=== PATIENT | female | born 1950 | race Caucasian/White ===

== ENCOUNTER 2019-04-02 03:28 | Inpatient (IN) ==
--- NOTE | 2019-04-02 03:32 | Emergency Department Note ---
Disposition Clinical Impression: UTI (urinary tract infection) Qualifiers: Urinary tract infection type: acute cystitis Hematuria presence: without hematuria Qualified Code(s): N30.00 - Acute cystitis without hematuria Sepsis Qualifiers: Sepsis type: sepsis due to unspecified organism Qualified Code(s): A41.9 - Sepsis, unspecified organism Disposition: Admitted As Inpatient Condition: Fair Time of Disposition: 21:45 General Adult HPI - General Stated complaint: fall Time Seen by Provider: 04/02/19 03:30 - Related Data Home Medications Medication Instructions Recorded Confirmed Acetaminophen [Extra Strength 1,000 mg PO Q6H PRN 04/02/19 04/02/19 Non-Aspirin] Allopurinol [Zyloprim 100 MG] 10 mg PO DAILY 04/02/19 04/02/19 Ascorbic Acid [Vitamin C] 500 mg PO DAILY 04/02/19 04/02/19 Aspirin [Adult Aspirin] 81 mg PO DAILY 04/02/19 04/02/19 Atorvastatin [Lipitor] 20 mg PO HS 04/02/19 04/02/19 Cholecalciferol (Vitamin D3) 2,000 unit PO DAILY 04/02/19 04/02/19 [Vitamin D] Citalopram [CeleXA] 20 mg PO DAILY 04/02/19 04/02/19 Cyanocobalamin (Vitamin B-12) 1,000 mcg PO DAILY 04/02/19 04/02/19 [Vitamin B-12] Fish Oil/Dha/Epa [Fish Oil 1,200 1 each PO DAILY 04/02/19 04/02/19 mg Fish Oil] Furosemide [Lasix] 40 mg PO DAILY 04/02/19 04/02/19 Glimepiride [Amaryl] 1 mg PO BID 04/02/19 04/02/19 Iron,Carbonyl [Iron Chews] 65 mg PO DAILY 04/02/19 04/02/19 Levothyroxine [Synthroid] 25 mcg PO DAILY 04/02/19 04/02/19 Levothyroxine [Synthroid] 200 mcg PO DAILY 04/02/19 04/02/19 Magnesium Oxide [Mag-Oxide 200 mg PO DAILY 04/02/19 04/02/19 Magnesium] Metoprolol [Lopressor] 12.5 mg PO BID 04/02/19 04/02/19 Oxybutynin [Ditropan] 5 mg PO BID 04/02/19 04/02/19 Potassium 99 mg PO DAILY 04/02/19 04/02/19 Warfarin [Coumadin] 5 mg PO 1800 04/02/19 04/02/19 Allergies Allergy/AdvReac Type Severity Reaction Status Date / Time piperacillin [From Zosyn] Allergy See Verified 04/02/19 03:37 Comments tazobactam [From Zosyn] Allergy See Verified 04/02/19 03:37 Comments Past Medical History - Past Medical History Medical history: Reports: non-contributory, cancer, diabetes, RA Surgical history: Reports: cholecystectomy, LEV/BSO, other Psychiatric history: Reports: anxiety, depression - Social History Smoking Status: Former smoker Smokeless Tobacco Status: No Alcohol use: Reports: none Drug use: Reports: none Course Vital Signs Temperature 102.2 F H 04/02/19 03:38 Pulse Rate 110 04/02/19 03:38 Respiratory Rate 21 04/02/19 03:38 Blood Pressure 118/75 04/02/19 03:38 O2 Sat by Pulse Oximetry 96 04/02/19 03:38 Temperature 100.3 F H 04/02/19 19:13 Pulse Rate 119 04/02/19 19:13 Respiratory Rate 17 04/02/19 19:13 Blood Pressure 118/72 04/02/19 19:13 O2 Sat by Pulse Oximetry 92 04/02/19 19:13 Oxygen Delivery Oxygen Delivery Room Air Medical Decision Making - Lab Data Result diagrams: 04/02/19 04:35 04/02/19 04:35 Lab Results 04/02/19 04/02/19 04/02/19 Range/Units 04:00 04:35 04:35 WBC 14.8 H (4.3-11.1) K/mcL RBC 3.94 (3.82-4.97) M/mcL Hgb 10.8 L (11.5-15.4) g/dL Hct 35.6 (35.3-44.9) % MCV 90.4 (83.0-100.0) fL MCH 27.4 L (28.0-33.3) pg MCHC 30.3 L (31.6-35.5) g/dL RDW 17.4 H (11.5-14.5) % Plt Count 205 (140-400) K/mcL MPV 9.9 (9.4-12.4) fL Immature Gran % 1.3 (0-4) % Seg Neutrophils % 87.1 % Lymphocytes % 4.9 % Monocytes % 6.1 % Eosinophils % 0.3 % Basophils % 0.3 % Neutrophils # 12.9 H (1.6-8.9) K/mcL Lymphocytes # 0.7 (0.6-4.6) K/mcL Monocytes # 0.9 (0.0-1.3) K/mcL Eosinophils # 0.0 (0.0-0.6) K/mcL Basophils # 0.1 (0.0-0.2) K/mcL Nucleated RBCs/100 WBC 0.1 H (0) /100 WBC PT (9.4-12.1) Seconds INR APTT (26.0-36.0) Seconds Sodium 135 L (136-145) mEq/L Potassium 4.4 (3.5-5.1) mEq/L Chloride 100 (98-107) mEq/L Carbon Dioxide 24 (23-29) mEq/L BUN 28 H (8-23) mg/dL Creatinine 1.40 H (0.60-1.20) mg/dL Est GFR ( Amer) 45 L (> 60) Est GFR (Non-Af Amer) 37 L (> 60) BUN/Creatinine Ratio 20 (6-26) Glucose 224 H (70-105) mg/dL Calculated Osmolality 292 (280-300) Lactic Acid (0.5-2.2) mmol/L Calcium 9.0 (8.6-10.3) mg/dL Phosphorus 2.6 L (2.7-4.5) mg/dL Magnesium 1.7 (1.6-2.6) mg/dL Total Bilirubin 0.8 (0.3-1.0) mg/dL Direct Bilirubin 0.3 H (0.0-0.2) mg/dL Indirect Bilirubin 0.5 (0.0-1.2) mg/dL AST 22 (13-39) Units/L ALT 15 (7-52) Units/L Alkaline Phosphatase 123 H (34-104) Units/L Troponin I 0.07 H* (< 0.04) ng/mL Serum Total Protein 7.6 (6.4-8.9) g/dL Albumin 3.3 L (3.5-5.7) g/dL Globulin 4.3 H (2.4-3.5) g/dL Albumin/Globulin Ratio 0.8 L (1.1-2.2) Urine Color Yellow (Yellow) Urine Clarity Turbid A (Clear) Urine pH 7.0 (5.0-8.0) pH Units Ur Specific [place] 1.018 (1.010-1.025) Urine Protein 100 H (Neg-Trace) mg/dL Urine Glucose (UA) Normal (Normal) mg/dL Urine Ketones Negative (Negative) mg/dL Urine Blood Moderate H (Negative) Urine Nitrite Positive A (Negative) Urine Bilirubin Negative (Negative) Urine Urobilinogen Normal (Normal) mg/dL Ur Leukocyte Esterase Large H (Negative) Urine Microscopic RBC 15-30 H (0-3) per hpf Urine Microscopic WBC 5-15 H (0-3) per hpf Ur Squamous Epith Cells Many H (None-Few) per lpf Urine Bacteria Many H (None-Few) per hpf Hyaline Casts None Seen (None-Few) per lpf Ur Culture Indicated? YES A (NO) 04/02/19 04/02/19 Range/Units 04:35 04:35 WBC (4.3-11.1) K/mcL RBC (3.82-4.97) M/mcL Hgb (11.5-15.4) g/dL Hct (35.3-44.9) % MCV (83.0-100.0) fL MCH (28.0-33.3) pg MCHC (31.6-35.5) g/dL RDW (11.5-14.5) % Plt Count (140-400) K/mcL MPV (9.4-12.4) fL Immature Gran % (0-4) % Seg Neutrophils % % Lymphocytes % % Monocytes % % Eosinophils % % Basophils % % Neutrophils # (1.6-8.9) K/mcL Lymphocytes # (0.6-4.6) K/mcL Monocytes # (0.0-1.3) K/mcL Eosinophils # (0.0-0.6) K/mcL Basophils # (0.0-0.2) K/mcL Nucleated RBCs/100 WBC (0) /100 WBC PT 15.5 H (9.4-12.1) Seconds INR 1.4 APTT 29.8 (26.0-36.0) Seconds Sodium (136-145) mEq/L Potassium (3.5-5.1) mEq/L Chloride (98-107) mEq/L Carbon Dioxide (23-29) mEq/L BUN (8-23) mg/dL Creatinine (0.60-1.20) mg/dL Est GFR ( Amer) (> 60) Est GFR (Non-Af Amer) (> 60) BUN/Creatinine Ratio (6-26) Glucose (70-105) mg/dL Calculated Osmolality (280-300) Lactic Acid 1.8 (0.5-2.2) mmol/L Calcium (8.6-10.3) mg/dL Phosphorus (2.7-4.5) mg/dL Magnesium (1.6-2.6) mg/dL Total Bilirubin (0.3-1.0) mg/dL Direct Bilirubin (0.0-0.2) mg/dL Indirect Bilirubin (0.0-1.2) mg/dL AST (13-39) Units/L ALT (7-52) Units/L Alkaline Phosphatase (34-104) Units/L Troponin I (< 0.04) ng/mL Serum Total Protein (6.4-8.9) g/dL Albumin (3.5-5.7) g/dL Globulin (2.4-3.5) g/dL Albumin/Globulin Ratio (1.1-2.2) Urine Color (Yellow) Urine Clarity (Clear) Urine pH (5.0-8.0) pH Units Ur Specific [place] (1.010-1.025) Urine Protein (Neg-Trace) mg/dL Urine Glucose (UA) (Normal) mg/dL Urine Ketones (Negative) mg/dL Urine Blood (Negative) Urine Nitrite (Negative) Urine Bilirubin (Negative) Urine Urobilinogen (Normal) mg/dL Ur Leukocyte Esterase (Negative) Urine Microscopic RBC (0-3) per hpf Urine Microscopic WBC (0-3) per hpf Ur Squamous Epith Cells (None-Few) per lpf Urine Bacteria (None-Few) per hpf Hyaline Casts (None-Few) per lpf Ur Culture Indicated? (NO) Attestation Statement - Attestation Attestation: I reviewed the residents documentation and agree with the residents assessment and plan of care. I have personally had face to face time with the patient. (Brief History, Brief Exam, and MDM) I personally supervised and was present for the ochoa/critical portions of the following procedures completed by the resident: (add procedures performed here). [id number] time provided Patient arrives by EMS from home. She states she mechanically got wedged between her power chair and bed. She felt weak. She was evaluated immediately upon arrival to the medical treatment area in conjunction with the resident physician Dr. Capone
[2019-04-02] MEDS ORDERED: 0.9 % Sodium Chloride 1,000 ML IVC ONE (03:47)
[2019-04-02 04:23] LABS: Bilirubin,Urine Negative (Negative); Blood,Urine Moderate (Negative); Clarity,Urine Turbid (Clear); Color,Urine Yellow (Yellow); Glucose,Urine (UA) Normal (Normal); Ketones,Urine Negative (Negative); Leukocyte Esterase,Urine Large (Negative); Nitrite,Urine Positive (Negative); Protein,Urine 100 mg/dL (Neg-Trace); Specific Gravity,Urine 1.018 (1.010-1.025); Urobilinogen,Urine Normal (Normal)
[2019-04-02 04:24] LABS: Bacteria,Urine Many per hpf (None-Few); Hyaline Casts,Urine None Seen per lpf (None-Few); RBC,Urine 15-30 per hpf (0-3); Squamous Epithelial Cell,Urine Many per lpf (None-Few)
--- NOTE | 2019-04-02 04:53 | Emergency Department Note ---
Disposition Clinical Impression: UTI (urinary tract infection) Qualifiers: Urinary tract infection type: acute cystitis Hematuria presence: without hematuria Qualified Code(s): N30.00 - Acute cystitis without hematuria Sepsis Qualifiers: Sepsis type: sepsis due to unspecified organism Qualified Code(s): A41.9 - Sepsis, unspecified organism Disposition: Admitted As Inpatient Condition: Fair Time of Disposition: 05:01 General Adult HPI - General Chief complaint: ED Fall Stated complaint: fall Time Seen by Provider: 04/02/19 03:30 Source: patient, EMS Mode of arrival: EMS Limitations: no limitations Nursing Notes Reviewed: Yes Vital Signs Reviewed: Yes - History of Present Illness HPI Narrative: Patient is a 68-year-old female with a past medical history of diabetes as well as necrotizing fasciitis involving the abdomen status post hysterectomy presenting to the emergency department for evaluation of not feeling well as long as she is calling a fall. She states 1 hour prior to arrival she was getting from her electric chair to the bed and in the process she became stuck in between her chair in the bed. She denies falling. She states that she screamed for her daughter for approximately 45 minutes before her daughter heard her and came to the room and in the squad was called. States that over the last 24 hours she is also not been feeling well chills states that she has been coughing intermittently. She has had a history of cellulitis in the past and she is concerned for rash in her abdomen and left flank. Pain Scale: 2 - Related Data Home Medications Medication Instructions Recorded Confirmed Acetaminophen [Extra Strength 1,000 mg PO Q6H PRN 04/02/19 04/02/19 Non-Aspirin] Allopurinol [Zyloprim 100 MG] 10 mg PO DAILY 04/02/19 04/02/19 Ascorbic Acid [Vitamin C] 500 mg PO DAILY 04/02/19 04/02/19 Aspirin [Adult Aspirin] 81 mg PO DAILY 04/02/19 04/02/19 Atorvastatin [Lipitor] 20 mg PO HS 04/02/19 04/02/19 Cholecalciferol (Vitamin D3) 2,000 unit PO DAILY 04/02/19 04/02/19 [Vitamin D] Citalopram [CeleXA] 20 mg PO DAILY 04/02/19 04/02/19 Cyanocobalamin (Vitamin B-12) 1,000 mcg PO DAILY 04/02/19 04/02/19 [Vitamin B-12] Fish Oil/Dha/Epa [Fish Oil 1,200 1 each PO DAILY 04/02/19 04/02/19 mg Fish Oil] Furosemide [Lasix] 40 mg PO DAILY 04/02/19 04/02/19 Glimepiride [Amaryl] 1 mg PO BID 04/02/19 04/02/19 Iron,Carbonyl [Iron Chews] 65 mg PO DAILY 04/02/19 04/02/19 Levothyroxine [Synthroid] 25 mcg PO DAILY 04/02/19 04/02/19 Levothyroxine [Synthroid] 200 mcg PO DAILY 04/02/19 04/02/19 Magnesium Oxide [Mag-Oxide 200 mg PO DAILY 04/02/19 04/02/19 Magnesium] Metoprolol 04/02/19 04/02/19 Oxybutynin [Ditropan] 5 mg PO BID 04/02/19 04/02/19 Potassium 99 mg PO DAILY 04/02/19 04/02/19 Allergies Allergy/AdvReac Type Severity Reaction Status Date / Time piperacillin [From Zosyn] Allergy See Verified 04/02/19 03:37 Comments tazobactam [From Zosyn] Allergy See Verified 04/02/19 03:37 Comments All systems ED: reviewed and negative except as stated. Review of Systems: As Per HPI Constitutional: Reports: chills. Denies: fever Cardiovascular: Denies: chest pain, palpitations, dyspnea on exertion Respiratory: Reports: cough. Denies: dyspnea, wheezes Gastrointestinal: Denies: abdominal pain, nausea, vomiting, diarrhea, constipation Genitourinary: Denies: urgency, dysuria, frequency Musculoskeletal: Denies: back pain, neck pain Integumentary: Denies: rash Neurological: Denies: headache, weakness, numbness Past Medical History - Past Medical History Attestation: Yes The following information was validated with the patient. Medical history: Reports: non-contributory, cancer, diabetes, RA Surgical history: Reports: cholecystectomy, LEV/BSO, other Psychiatric history: Reports: anxiety, depression - Social History Smoking Status: Former smoker Smokeless Tobacco Status: No Alcohol use: Reports: none Drug use: Reports: none Physical Exam - General Limitations: no limitations General appearance: alert, in no apparent distress, obese - Head Head exam: atraumatic, normocephalic, normal inspection - Eye Eye exam: Present: normal appearance, PERRL, EOMI - ENT ENT exam: normal exam, normal oropharynx, mucous membranes dry - Neck Neck exam: Present: normal inspection, full ROM, trachea midline - Chest Chest inspection: Present: normal inspection, symmetric chest wall rise - Respiratory Respiratory exam: Present: other (diminished bilaterally). Absent: respiratory distress - Cardiovascular Cardiovascular exam: Present: regular rate, normal rhythm, normal heart sounds, +S1, +S2 - Abdominal Exam Abdominal exam: Present: soft, Non-Tender. Absent: tenderness, distention, guarding, rebound, rigidity - Extremities Exam Extremities exam: Present: normal inspection, full ROM, other (diabetic foot ulcer to the left heal appears stage 2/3). Absent: tenderness, pedal edema - Back Exam Back exam: Present: normal inspection, full ROM. Absent: CVA tenderness (R), CVA tenderness (L), rashes - Neurological Exam Neurological exam: Present: alert, oriented X3 - Psychiatric Psychiatric exam: Present: normal affect, normal mood - Skin Skin exam: Present: warm, dry, intact, rash (lower abdomen and left flank that is petechial and large that is patch-like with no blanching. ) Course Course Narrative: Patient's lab work concerning for leukocytosis of 14.8 elevation of her creatinine of 1.40 which has been elevated similarly in the past as well as a urine concerning for a infection. Patient was started on Levaquin given her allergies. She also has an elevation of her troponin of 0.07 which is suspect is due to demand ischemia due to her tachycardia secondary to her sepsis. She is admitted to the hospitalist service for further management. Vital Signs Temperature 102.2 F H 04/02/19 03:38 Pulse Rate 110 04/02/19 03:38 Respiratory Rate 21 04/02/19 03:38 Blood Pressure 118/75 04/02/19 03:38 O2 Sat by Pulse Oximetry 96 04/02/19 03:38 Temperature 101.1 F H 04/02/19 05:21 Pulse Rate 128 04/02/19 05:52 Respiratory Rate 19 04/02/19 05:52 Blood Pressure 143/60 04/02/19 05:52 O2 Sat by Pulse Oximetry 91 04/02/19 05:52 Oxygen Delivery Oxygen Delivery Room Air Medical Decision Making - Medical Records Medical records reviewed: Yes I reviewed the patient's medical records. - Lab Data Lab results reviewed: Yes I reviewed the patient's lab results. Result diagrams: 04/02/19 04:35 04/02/19 04:35 Lab Results 04/02/19 04/02/19 04/02/19 Range/Units 04:00 04:35 04:35 WBC 14.8 H (4.3-11.1) K/mcL RBC 3.94 (3.82-4.97) M/mcL Hgb 10.8 L (11.5-15.4) g/dL Hct 35.6 (35.3-44.9) % MCV 90.4 (83.0-100.0) fL MCH 27.4 L (28.0-33.3) pg MCHC 30.3 L (31.6-35.5) g/dL RDW 17.4 H (11.5-14.5) % Plt Count 205 (140-400) K/mcL MPV 9.9 (9.4-12.4) fL Immature Gran % 1.3 (0-4) % Seg Neutrophils % 87.1 % Lymphocytes % 4.9 % Monocytes % 6.1 % Eosinophils % 0.3 % Basophils % 0.3 % Neutrophils # 12.9 H (1.6-8.9) K/mcL Lymphocytes # 0.7 (0.6-4.6) K/mcL Monocytes # 0.9 (0.0-1.3) K/mcL Eosinophils # 0.0 (0.0-0.6) K/mcL Basophils # 0.1 (0.0-0.2) K/mcL Nucleated RBCs/100 WBC 0.1 H (0) /100 WBC PT (9.4-12.1) Seconds INR APTT (26.0-36.0) Seconds Sodium 135 L (136-145) mEq/L Potassium 4.4 (3.5-5.1) mEq/L Chloride 100 (98-107) mEq/L Carbon Dioxide 24 (23-29) mEq/L BUN 28 H (8-23) mg/dL Creatinine 1.40 H (0.60-1.20) mg/dL Est GFR ( Amer) 45 L (> 60) Est GFR (Non-Af Amer) 37 L (> 60) BUN/Creatinine Ratio 20 (6-26) Glucose 224 H (70-105) mg/dL Calculated Osmolality 292 (280-300) Lactic Acid (0.5-2.2) mmol/L Calcium 9.0 (8.6-10.3) mg/dL Phosphorus 2.6 L (2.7-4.5) mg/dL Magnesium 1.7 (1.6-2.6) mg/dL Total Bilirubin 0.8 (0.3-1.0) mg/dL Direct Bilirubin 0.3 H (0.0-0.2) mg/dL Indirect Bilirubin 0.5 (0.0-1.2) mg/dL AST 22 (13-39) Units/L ALT 15 (7-52) Units/L Alkaline Phosphatase 123 H (34-104) Units/L Troponin I 0.07 H* (< 0.04) ng/mL Serum Total Protein 7.6 (6.4-8.9) g/dL Albumin 3.3 L (3.5-5.7) g/dL Globulin 4.3 H (2.4-3.5) g/dL Albumin/Globulin Ratio 0.8 L (1.1-2.2) Urine Color Yellow (Yellow) Urine Clarity Turbid A (Clear) Urine pH 7.0 (5.0-8.0) pH Units Ur Specific [place] 1.018 (1.010-1.025) Urine Protein 100 H (Neg-Trace) mg/dL Urine Glucose (UA) Normal (Normal) mg/dL Urine Ketones Negative (Negative) mg/dL Urine Blood Moderate H (Negative) Urine Nitrite Positive A (Negative) Urine Bilirubin Negative (Negative) Urine Urobilinogen Normal (Normal) mg/dL Ur Leukocyte Esterase Large H (Negative) Urine Microscopic RBC 15-30 H (0-3) per hpf Urine Microscopic WBC 5-15 H (0-3) per hpf Ur Squamous Epith Cells Many H (None-Few) per lpf Urine Bacteria Many H (None-Few) per hpf Hyaline Casts None Seen (None-Few) per lpf Ur Culture Indicated? YES A (NO) 04/02/19 04/02/19 Range/Units 04:35 04:35 WBC (4.3-11.1) K/mcL RBC (3.82-4.97) M/mcL Hgb (11.5-15.4) g/dL Hct (35.3-44.9) % MCV (83.0-100.0) fL MCH (28.0-33.3) pg MCHC (31.6-35.5) g/dL RDW (11.5-14.5) % Plt Count (140-400) K/mcL MPV (9.4-12.4) fL Immature Gran % (0-4) % Seg Neutrophils % % Lymphocytes % % Monocytes % % Eosinophils % % Basophils % % Neutrophils # (1.6-8.9) K/mcL Lymphocytes # (0.6-4.6) K/mcL Monocytes # (0.0-1.3) K/mcL Eosinophils # (0.0-0.6) K/mcL Basophils # (0.0-0.2) K/mcL Nucleated RBCs/100 WBC (0) /100 WBC PT 15.5 H (9.4-12.1) Seconds INR 1.4 APTT 29.8 (26.0-36.0) Seconds Sodium (136-145) mEq/L Potassium (3.5-5.1) mEq/L Chloride (98-107) mEq/L Carbon Dioxide (23-29) mEq/L BUN (8-23) mg/dL Creatinine (0.60-1.20) mg/dL Est GFR ( Amer) (> 60) Est GFR (Non-Af Amer) (> 60) BUN/Creatinine Ratio (6-26) Glucose (70-105) mg/dL Calculated Osmolality (280-300) Lactic Acid 1.8 (0.5-2.2) mmol/L Calcium (8.6-10.3) mg/dL Phosphorus (2.7-4.5) mg/dL Magnesium (1.6-2.6) mg/dL Total Bilirubin (0.3-1.0) mg/dL Direct Bilirubin (0.0-0.2) mg/dL Indirect Bilirubin (0.0-1.2) mg/dL AST (13-39) Units/L ALT (7-52) Units/L Alkaline Phosphatase (34-104) Units/L Troponin I (< 0.04) ng/mL Serum Total Protein (6.4-8.9) g/dL Albumin (3.5-5.7) g/dL Globulin (2.4-3.5) g/dL Albumin/Globulin Ratio (1.1-2.2) Urine Color (Yellow) Urine Clarity (Clear) Urine pH (5.0-8.0) pH Units Ur Specific [place] (1.010-1.025) Urine Protein (Neg-Trace) mg/dL Urine Glucose (UA) (Normal) mg/dL Urine Ketones (Negative) mg/dL Urine Blood (Negative) Urine Nitrite (Negative) Urine Bilirubin (Negative) Urine Urobilinogen (Normal) mg/dL Ur Leukocyte Esterase (Negative) Urine Microscopic RBC (0-3) per hpf Urine Microscopic WBC (0-3) per hpf Ur Squamous Epith Cells (None-Few) per lpf Urine Bacteria (None-Few) per hpf Hyaline Casts (None-Few) per lpf Ur Culture Indicated? (NO) - Radiology Data Radiology results reviewed: Yes I reviewed the patient's radiology results. Chest X-Ray 04/02/19 03:45 IMPRESSION: Cardiomegaly with mild pulmonary edema and suspected small effusions. Difficult to exclude subtle airspace disease at the left lung base. D/ / José Miguel Packer / José Miguel Packer Interpreting Provider: José Miguel Packer - EKG Data EKG #1 EKG attestation: Yes I reviewed and interpreted this EKG.
[2019-04-02 04:57] LABS: Basophils # 0.1 K/mcL (0.0-0.2); Basophils % 0.3 %; Eosinophils % 0.3 %; Hematocrit 35.6 % (35.3-44.9); Hemoglobin 10.8 g/dL (11.5-15.4); Immature Granulocytes % 1.3 % (0-4); Lymphocytes # 0.7 K/mcL (0.6-4.6); Lymphocytes % 4.9 %; Mean Corpuscular HGB Conc 30.3 g/dL (31.6-35.5); Mean Corpuscular Hemoglobin 27.4 pg (28.0-33.3); Mean Corpuscular Volume 90.4 fL (83.0-100.0); Mean Platelet Volume 9.9 fL (9.4-12.4); Monocytes # 0.9 K/mcL (0.0-1.3); Monocytes % 6.1 %; Neutrophils # 12.9 K/mcL (1.6-8.9); Nucleated Red Blood Cells 0.1 /100 WBC (0); Platelet Count 205 K/mcL (140-400); Red Blood Count 3.94 M/mcL (3.82-4.97); Red Cell Distribution Width 17.4 % (11.5-14.5); Segmented Neutrophils % 87.1 %; White Blood Count 14.8 K/mcL (4.3-11.1)
[2019-04-02] MEDS ORDERED: levoFLOXacin 750 MG/150 ML 750 MG/150 ML BAG IVPB ONE (04:58)
[2019-04-02 05:01] LABS: INR 1.4; Prothrombin Time 15.5 Seconds (9.4-12.1)
[2019-04-02 05:03] LABS: Activated Partial Thrombo Time 29.8 Seconds (26.0-36.0)
[2019-04-02 05:26] LABS: Albumin 3.3 g/dL (3.5-5.7); Albumin/Globulin Ratio 0.8 (1.1-2.2); Bilirubin,Direct 0.3 mg/dL (0.0-0.2); Bilirubin,Indirect 0.5 mg/dL (0.0-1.2); Bilirubin,Total 0.8 mg/dL (0.3-1.0); Globulin 4.3 g/dL (2.4-3.5); Magnesium 1.7 mg/dL (1.6-2.6); Phosphorous 2.6 mg/dL (2.7-4.5); Potassium 4.4 mEq/L (3.5-5.1); Total Protein 7.6 g/dL (6.4-8.9); Troponin I 0.07 ng/mL (< 0.04)
[2019-04-02] MEDS ORDERED: D5% in Water 1,000 ML IVC PRN (09:37)
[2019-04-02] MEDS ORDERED: *HR* Dextrose 50 % in Water (Syg) 50 ML SYRINGE IVP PRN (09:37)
[2019-04-02] MEDS ORDERED: Dextrose Gel 15 GM/37.5 ML TUBE PO PRN ×2 (09:37)
[2019-04-02] MEDS ORDERED: Naloxone 0.4 MG/ML INJ IVP PRN (09:58)
--- NOTE | 2019-04-02 10:49 | Internal Med History&Physical ---
<Naeem España - Last Filed: 04/02/19 11:08> Date of Encounter: 04/02/19 Time of Encounter: 10:00 Internal Medicine - H&P: HPI Chief complaint: Weakness Admitted From: Home History of present illness: Ms. Betancourt is a 68 year old morbidly obese female with a reported past medical history of T2DM, necrotizing fasciitis, RA, Afib on coumadin, CKD stage III, kidney stones, CAD sp coronary stent placement x3. Patient arrived to the ED this morning complaining of weakness. She is nonambulatory due to her obesity and transports herself to and from a powered wheelchair. Around midnight this morning, she experienced a fever of 102.2 and weakness throughout her body. While she was transporting herself from the wheelchair to the bed, she felt weak and in her attempt to get on the bed she fell after losing her footing and "was pinned between the power chair and the bed." Her granddaughter's boyfriend found her after "a while" as she called for help. She developed a band-like bruising on her lower abdomen after the episode. She takes coumadin for Afib and goes to a coumadin clinic. Her last visit was 3 weeks ago and her INR was "2.something". Earlier this week, she experienced a maculopapular rash on her right lower abdomen. The rash is nonpruritic and around the site where she previously had necrotizing fasciitis. The patient experienced fever, lethargy confusion, lower back pain, decreased appetite, and cloudy urine which she attributes to vaseline use for itchiness in the genital area. She denies dysuria, suprapubic pain, increased urinary frequency, or hematuria. She further denies palpitations, chest pain, SOB, focal neurological deficits, or constipation. Past Med Surg Social Fam HX - Past Medical History Medical history: non-contributory, atrial fibrillation, cancer, diabetes, kidney stones, RA, renal disease Additional medical history: Endometrial Cervical cancer Psychiatric history: anxiety, depression - Past Surgical History Surgical History: cholecystectomy Additional surgical history: Necrotizing fasciitis in 2010 to a surgical incision. Gallbladder gangreen surgery 2001. Hysterectomy 2010. Coronary stent placement 2006. Ureteral stent placement december 2018 - Social History Smoking Status: Former smoker Smokeless Tobacco Status: No Alcohol use: none Drug use: none - Family History Father Living Status: Hx Family Cancer: Yes (Metastatic lung cancer) Internal Medicine - H&P: Meds Acetaminophen [Extra Strength Non-Aspirin] 1,000 mg PO Q6H PRN 04/02/19 [Histo ry] Allopurinol [Zyloprim 100 MG] 10 mg PO DAILY 04/02/19 [History] Ascorbic Acid [Vitamin C] 500 mg PO DAILY 04/02/19 [History] Aspirin [Adult Aspirin] 81 mg PO DAILY 04/02/19 [History] Atorvastatin [Lipitor] 20 mg PO HS 04/02/19 [History] Cholecalciferol (Vitamin D3) [Vitamin D] 2,000 unit PO DAILY 04/02/19 [History] Citalopram [CeleXA] 20 mg PO DAILY 04/02/19 [History] Cyanocobalamin (Vitamin B-12) [Vitamin B-12] 1,000 mcg PO DAILY 04/02/19 [History] Fish Oil/Dha/Epa [Fish Oil 1,200 mg Fish Oil] 1 each PO DAILY 04/02/19 [History] Furosemide [Lasix] 40 mg PO DAILY 04/02/19 [History] Glimepiride [Amaryl] 1 mg PO BID 04/02/19 [History] Iron,Carbonyl [Iron Chews] 65 mg PO DAILY 04/02/19 [History] Levothyroxine [Synthroid] 25 mcg PO DAILY 04/02/19 [History] Levothyroxine [Synthroid] 200 mcg PO DAILY 04/02/19 [History] Magnesium Oxide [Mag-Oxide Magnesium] 200 mg PO DAILY 04/02/19 [History] Metoprolol [Lopressor] 12.5 mg PO BID 04/02/19 [History] Oxybutynin [Ditropan] 5 mg PO BID 04/02/19 [History] Potassium 99 mg PO DAILY 04/02/19 [History] Warfarin [Coumadin] 5 mg PO 1800 04/02/19 [History] Allergy/AdvReac Type Severity Reaction Status Date / Time piperacillin [From Zosyn] Allergy See Verified 04/02/19 03:37 Comments tazobactam [From Zosyn] Allergy See Verified 04/02/19 03:37 Comments All Systems PM: A 10-system review of systems was performed and is negative for pertinent findings except as documented above in the HPI. - Constitutional Constitutional: as per HPI - EENT Eyes: as per HPI Ears: as per HPI Nose, mouth and throat: as per HPI - Cardiovascular Cardiovascular ROS IM: as per HPI - Respiratory Respiratory: as per HPI - Gastrointestinal Gastrointestinal: as per HPI - Genitourinary Genitourinary: as per HPI - Musculoskeletal Musculoskeletal ROS IM: as per HPI - Integumentary Integumentary IM: as per HPI - Neurological Neurological ROS: as per HPI - Psychiatric Psychiatric: as per HPI - Endocrine Endocrine IM: as per HPI - Hematologic/Lymphatic Hematologic/Lymphatic: as per HPI - Allergic/Immunologic Allergic/Immunologic: as per HPI - Constitutional Vitals: Temp Pulse Resp BP Pulse Ox 99.0 F 107 19 117/66 90 04/02/19 06:49 04/02/19 06:49 04/02/19 06:49 04/02/19 06:49 04/02/19 06:49 General appearance: Present: A&O X 3, pleasant, no acute distress, answers questions appropriately Exam: mobidly obese - Head Head exam: Present: atraumatic, normocephalic - Neck Neck exam general surgery: Present: supple, trachea midline - Respiratory Respiratory exam: Present: CTAB - Cardiovascular Cardiovascular exam: Present: irregular rhythm, +S1, +S2. Absent: rubs, systolic murmur - Extremities Exam Additional comments: +2 bilateral lower extremity pitting edema. left lower extremity darkening of the skin. - Skin Additional comments: scarring along the lower abdomen due to prior surgery. significant bruising along the lower abdomen from prior fall. Internal Med - H&P Results - Labs CBC & Chem 7: 04/02/19 04:35 04/02/19 04:35 Labs: Short CBC 04/02/19 Range/Units 04:35 WBC 14.8 H (4.3-11.1) K/mcL Hgb 10.8 L (11.5-15.4) g/dL Hct 35.6 (35.3-44.9) % Plt Count 205 (140-400) K/mcL Neutrophils # 12.9 H (1.6-8.9) K/mcL BMP 04/02/19 04:35 Sodium 135 L Potassium 4.4 Chloride 100 Carbon Dioxide 24 BUN 28 H Creatinine 1.40 H Glucose 224 H Calcium 9.0 Cardiac Enzymes 04/02/19 Range/Units 04:35 Troponin I 0.07 H* (< 0.04) ng/mL Liver Function 04/02/19 Range/Units 04:35 Total Bilirubin 0.8 (0.3-1.0) mg/dL Direct Bilirubin 0.3 H (0.0-0.2) mg/dL AST 22 (13-39) Units/L ALT 15 (7-52) Units/L Alkaline Phosphatase 123 H (34-104) Units/L Albumin 3.3 L (3.5-5.7) g/dL Urine 04/02/19 Range/Units 04:00 Urine Color Yellow (Yellow) Urine Clarity Turbid A (Clear) Urine pH 7.0 (5.0-8.0) pH Units Ur Specific [employer] [place] 1.018 (1.010-1.025) Urine Protein 100 H (Neg-Trace) mg/dL Urine Glucose (UA) Normal (Normal) mg/dL - Impressions ITS Impressions Chest X-Ray 04/02/19 03:45 IMPRESSION: Cardiomegaly with mild pulmonary edema and suspected small effusions. Difficult to exclude subtle airspace disease at the left lung base. D/ / José Miguel Packer / José Miguel Packer Interpreting Provider: José Miguel Packer - Assessment and Plan (1) Sepsis Current Visit: Yes Status: Acute Assessment and plan: temperature 102.2, tachycardia, WBC 14.8 source of infection likely secondary to UTI. UA positive for blood, nitrites, leukocyte esterase, bacteria. CXR showed cardiomegaly with mild pulmonary edema and suspected small effusions. suspect source of infection secondary to UTI. of note, patient has had multiple UTIs in the past. patient received one dose of levaquin in ED and received one fluid bolus. Plan: start ceftriaxone urine culture pending blood culture x2 pending patient fluid overloaded. 1 dose 40mg IV lasix 1 now. resume home lasix afterwards. Qualifiers: Sepsis type: sepsis due to unspecified organism Qualified Code(s): A41.9 - Sepsis, unspecified organism (2) UTI (urinary tract infection) Current Visit: Yes Status: Acute Assessment and plan: plan as above Qualifiers: Urinary tract infection type: acute cystitis Hematuria presence: without hematuria Qualified Code(s): N30.00 - Acute cystitis without hematuria (3) Status post fall Current Visit: Yes Status: Acute Assessment and plan: patient on coumadin for Afib and had fall at home with significant lower abdominal bruising. Plan: will get CT abdomen/pelvis to assess for lower abdominal bleeding consult to PT/OT (4) Elevated troponin Current Visit: Yes Status: Acute Assessment and plan: elevated troponin of 0.07, no chest pain. likely demand ischemia in setting of sepsis. continue to trend. (5) CHF (congestive heart failure) Current Visit: No Status: Chronic Assessment and plan: last echo 07/17/18 shows EF 40-45% continue home dose lasix. Qualifiers: Heart failure type: systolic Heart failure chronicity: chronic Qualified Code(s): I50.22 - Chronic systolic (congestive) heart failure (6) CKD (chronic kidney disease) stage 3, GFR 30-59 ml/min Current Visit: No Status: Chronic (7) Gout Current Visit: No Status: Chronic Assessment and plan: continue allopurinol. Qualifiers: Gout site: unspecified site Gout etiology: unspecified cause Chronicity: chronic Presence of tophus: without tophus Qualified Code(s): M1A.9XX0 - Chronic gout, unspecified, without tophus (tophi) (8) Diabetes Current Visit: No Status: Chronic Assessment and plan: hold amaryl, low dose sliding scale insulin ACHS accuchecks ADA diet Qualifiers: Diabetes mellitus type: type 2 Diabetes mellitus continuous churn buttermaker insulin use: without continuous churn buttermaker use Diabetes mellitus complication status: with skin complications Diabetes mellitus complication detail: with foot ulcer Qualified Code(s): E11.621 - Type 2 diabetes mellitus with foot ulcer; L97.509 - Non-pressure chronic ulcer of other part of unspecified foot with unspecified se verity (9) Hypothyroidism Current Visit: No Status: Chronic Assessment and plan: continue synthroid Qualifiers: Hypothyroidism type: unspecified Qualified Code(s): E03.9 - Hypothyroidism, unspecified (10) Morbid obesity Current Visit: No Status: Chronic Assessment and plan: lifestyle modifications advised. (11) CAD (coronary artery disease) Current Visit: No Status: Chronic Assessment and plan: hx of cardiac stent placement x3 continue ASA, statin, beta nayan Qualifiers: Coronary Disease-Associated Artery/Lesion type: [place] artery [place] vs. transplanted heart: [place] heart Associated angina: without angina Qualified Code(s): I25.10 - Atherosclerotic heart disease of [place] coronary artery without angina pectoris (12) DVT prophylaxis Current Visit: Yes Status: Acute Assessment and plan: warfarin dosing per pharmacy - Time Spent With Patient Total time spent is greater than 50% in coordination of care (as documented) at patient's floor/unit and/or counseling patient: <Mariza Padilla - Last Filed: 04/03/19 06:31> Date of Encounter: 04/02/19 Internal Medicine - H&P: HPI History of present illness: Ms. Betancourt is a 68 year old female All Systems PM: A 10-system review of systems was performed and is negative for pertinent findings except as documented above in the HPI. - Constitutional Vitals: Temp Pulse Resp BP Pulse Ox 99.9 F H 98 17 116/75 93 04/03/19 03:52 04/03/19 03:52 04/03/19 03:52 04/03/19 03:52 04/03/19 03:52 Internal Med - H&P Results - Labs CBC & Chem 7: 04/02/19 04:35 04/02/19 04:35 Labs: Cardiac Enzymes 04/02/19 04/02/19 Range/Units 10:37 17:03 Troponin I 0.15 H* 0.13 H* (< 0.04) ng/mL - Impressions ITS Impressions Chest X-Ray 04/02/19 03:45 IMPRESSION: Cardiomegaly with mild pulmonary edema and suspected small effusions. Difficult to exclude subtle airspace disease at the left lung base. D/ / José Miguel Packer / José Miguel Packer Interpreting Provider: José Miguel Packer Abdomen/Pelvis CT 04/02/19 10:00 IMPRESSION: 1. No intra-abdominopelvic hematoma 2. Slightly nodular contour of the liver suggests possible cirrhosis, with mild splenomegaly. No ascites 3. Interval passage of right ureteral stones. Persistent stone in the right renal pelvis and stones in right renal calyces, with haziness of the right peripelvic fat suggesting pyelitis 4. Sigmoid diverticulosis 5. Uncomplicated herniation of a portion of transverse colon through a ventral wall defect 6. Bubble of gas in the urinary bladder should be correlated with any recent catheterization or cystitis 7. Stable para-aortic lymph node 8. Status post cholecystectomy and hysterectomy D/ / Juan Arevalo MD / Juan Arevalo MD Interpreting Provider: Juan Arevalo MD - Time Spent With Patient Total time spent is greater than 50% in coordination of care (as documented) at patient's floor/unit and/or counseling patient: - Attending Attestation I performed a history and physical examination of the patient and discussed his management with the resident. I reviewed the residents note and agree with the documented findings and plan of care.
[2019-04-02] MEDS: Acetaminophen 325 MG TABLET PO PRN ×2 (11:44→17:45)
[2019-04-02] MEDS ORDERED: Furosemide 40 MG/4 ML VIAL IVP ONE (11:50)
[2019-04-02] MEDS: Insulin LISPRO 300 UNITS/3 ML VIAL SQ SCH ×3 (12:36→21:10)
[2019-04-02] MEDS ORDERED: *HR* Metoprolol 5 MG/5 ML VIAL IVP ONE (13:29)
--- NOTE | 2019-04-02 16:31 | Electrocardiograph Report ---
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
[2019-04-02] MEDS ORDERED: Warfarin perPT PO PRN (18:00)
[2019-04-02] MEDS ORDERED: *HR* Warfarin 5 MG TABLET PO ONE (18:00)
[2019-04-03] MEDS: Acetaminophen 325 MG TABLET PO PRN ×3 (01:40→21:24)
[2019-04-03 03:09] LABS: INR 1.5; Prothrombin Time 17.3 Seconds (9.4-12.1)
[2019-04-03] MEDS: cefTRIAXone 2,000 MG in Water for inj. (sterile) 20 ML IVP SCH (05:04)
[2019-04-03] MEDS: Levothyroxine 25 MCG TABLET PO SCH (05:05)
[2019-04-03] MEDS: Insulin LISPRO 300 UNITS/3 ML VIAL SQ SCH ×4 (07:47→21:23)
--- NOTE | 2019-04-03 08:11 | Internal Med Progress Note ---
<Tod Cabrera - Last Filed: 04/03/19 14:00> Hospitalist Progress Note - Encounter Date of Encounter: 04/03/19 - Exam Vitals: Temp Pulse Resp BP Pulse Ox 101.7 F H 106 20 130/77 90 04/03/19 10:57 04/03/19 10:57 04/03/19 10:57 04/03/19 10:57 04/03/19 10:57 - Time Spent with Patient Total time spent is greater than 50% in coordination of care (as documented) at patient's floor/unit and/or counseling patient: Internal Medicine: Result - Labs CBC & Chem 7: 04/03/19 08:38 04/03/19 08:38 Labs: Short CBC 04/03/19 Range/Units 08:38 WBC 14.2 H (4.3-11.1) K/mcL Hgb 10.9 L (11.5-15.4) g/dL Hct 35.4 (35.3-44.9) % Plt Count 182 (140-400) K/mcL Neutrophils # 12.1 H (1.6-8.9) K/mcL BMP 04/03/19 08:38 Sodium 132 L Potassium 3.9 Chloride 97 L Carbon Dioxide 27 BUN 26 H Creatinine 1.35 H Glucose 159 H Calcium 8.7 Cardiac Enzymes 04/02/19 Range/Units 17:03 Troponin I 0.13 H* (< 0.04) ng/mL - ABG Interpretation ABG results: PT/INR, D-dimer PT 17.3 Seconds (9.4-12.1) H 04/03/19 02:29 Consult Discharge Plan - Plan Referrals: Yoan Garcia DO [Primary Care Provider] - - Attending Attestation I examined this patient and my medical decision-making was reviewed with the Resident Physician. I agree with the documented findings, disposition and treatment plan as described except to the extent set forth below. Patient seen and examined at bedside. Patient states that she feels weak today. She reports pain in her knees bilaterally. She reports lower abdominal pain. Denies any fevers or chills. On exam patient is morbidly obese, heart is regular rate and rhythm, no murmurs, rubs, gallops. Abdomen is soft, mildly tender in the lower quadrant. She is noted to have a rash on her lower abdominal wall. No ecchymosis or deformity noted to the knees bilaterally. Sepsis secondary to urinary tract infection: Patient has fever, tachycardia, leukocytosis. Lactic acid, blood pressure normal. Urinary tract infection: Patient presented with fever, leukocytosis, urine c ulture preliminary positive for 2 different gram-negative rods. Currently on Rocephin. Continue to monitor urine culture results and tailor antibiotic therapy accordingly. Fall with knee pain: Plan for bilateral knee x-ray. PT/OT consult. <German Riley - Last Filed: 04/03/19 14:42> Hospitalist Progress Note - Encounter Date of Encounter: 04/03/19 Time of Encounter: 08:11 - Subjective Interval History: Patient was seen and examined at bedside this morning. Patient continued to have temperature overnight = up to 102.7F. She otherwise complains of fatigue, lethargy, body aches, pain all over. She does deny any headache, blurry vision, chest pain, respiratory difficulty, abdominal pain, nausea, vomiting. Vitals hemodynamically stable. Slightly improving leukocytosis. Plan to continue with ceftriaxone for treatment of urinary tract infection, and start vancomycin for treatment of likely cellulitis. Additionally, we will supplement with pain control as needed. - Exam Vitals: Temp Pulse Resp BP Pulse Ox 99.4 F 108 20 119/75 92 04/03/19 07:01 04/03/19 07:01 04/03/19 07:01 04/03/19 07:01 04/03/19 07:01 Exam: GEN: This is a very pleasant 68-year-old female resting in bed side. Accompanied by family. Vitals stable. No acute distress. AAOx3. Morbidly obese HEENT: Atraumatic, Normocephalic, PERRLA, EOMI NECK: Supple, no lymphadenopathy, no JVD CARDIAC: RRR, s1 and s2 present, no murmurs, rubs, gallops PULM: CTAB, not in respiratory distress, no wheezes, rales, crackles, rhonchi ABD: Mild abdominal tenderness to palpation. Extensive rash spreading across lower abdomen from the right lower quadrant all the way around the left lower quadrant to the left flank. Slightly raised rash. Otherwise slightly tender. No wound discharge, blistering. Otherwise, Soft, non-distended, no guarding or rebound tenderness. Bowel sounds present EXT: Mild peripheral edema. Tenderness to palpation. Bruising at the left ankle. No calf tenderness, cyanosis, clubbing NEURO: CN 2-12 grossly intact. No focal neurologic deficits. Follows commands PSYCH: Appropriate mood and affect - Assessment and Plan (1) Sepsis Current Visit: Yes Status: Acute Assessment and Plan: This is a 5-year-old female with extensive past medical history who arrived to the ED complaining of weakness. - Morbidly obese. Transports herself with a mobilized wheelchair. Noted to fall and trap herself between wheelchair and bed. - History of atrial fibrillation on Coumadin - Additionally noted to have a rash across lower abdomen. - Associated symptoms do include fever, lethargy, back and knee pain, decreased appetite - Noted to have temperatures up to 102.7 F; vitals otherwise stable. Patient does have leukocytosis = 14.8 on admission. No lactic acidosis. - Troponin was elevated = 0.07 => 0.15 => 0.13 - Urinalysis did show turbid urine with moderate blood, positive nitrite, large leukocyte esterase, many urine bacteria. - Chest x-ray = cardiomegaly with mild pulmonary edema and suspected small effusions. - EKG did show atrial fibrillation - CT of the abdomen and pelvis: No intra-abdominal pelvic hematoma. Slightly nodular contour liver suggests possible cirrhosis. Sigmoid diverticulosis. Uncomplicated herniation of portion of transverse colon through ventral wall defect. - Status post 1 dose of Levaquin in the ED in one fluid bolus. Admitted for further workup of septic presentation. PLAN: Patient is septic on presentation. She has white count = 14.8, temperature = 102.7 at the highest, and source of infection which is likely UTI. This is suggestive of sepsis secondary to UTI (urosepsis). Patient does have history of multiple UTIs in the past. Patient additionally has picture resembling cellulitis of the abdominal wall. - We will continue patient on antibiotics. Started on Rocephin for treatment of UTI - Follow up blood cultures and urine cultures - We will hold off on giving patient further fluids, given fluid overload status. We will continue with home dose Lasix. - We will start vancomycin given possible cellulitis of the abdominal wall. - Continue to monitor for fevers and her worsening leukocytosis. - Pain and nausea control as needed - Wound care consult. Recommendations appreciated. - Physical therapy/occupational therapy additionally consulted. Recommendations appreciated. (2) UTI (urinary tract infection) Current Visit: Yes Status: Acute Assessment and Plan: History of multiple UTIs in the past - Previous urine cultures mostly grown Klebsiella species. Susceptible to ceftriaxone. - Urinalysis did show turbid urine with moderate blood, positive nitrite, large leukocyte esterase, many urine bacteria. PLAN: Patient presents with likely sepsis secondary to UTI - Continue with Rocephin 2 g daily. - Follow up urine culture - Continue monitor fevers or worsening leukocytosis. (3) Cellulitis Current Visit: Yes Status: Acute Assessment and Plan: Patient does have worsening lower abdominal rash - Spreads from right lower quadrant to left lower quadrant and left flank - May also be secondary to bruising after fall, in this patient who is on Coumadin - However rashes tender to palpation PLAN: Patient appears to have cellulitis of the anterior abdominal wall. May be contributing to fevers and leukocytosis. - We will empirically treat with vancomycin for now - Continue to monitor rash, monitor for worsening signs and symptoms are improving signs and symptoms - Continue to trend white count and monitor for fevers. (4) CHF (congestive heart failure) Current Visit: No Status: Chronic Assessment and Plan: Most recent echocardiogram (07/17/18): Moderately dilated left atrium, LVEF = 40-45%. Indeterminant diastolic function. Normal right ventricle. - Patient does have 2+ lower extremity edema PLAN: - Continue with home dose Lasix. - Does not appear to be in acute CHF exacerbation. (5) Elevated troponin Current Visit: Yes Status: Acute Assessment and Plan: Patient was noted to have elevated troponin on presentation. - EKG did show atrial fibrillation, and did not show any sign of acute ischemic changes - Troponin trended from 0.07 => 0.15 => 0.13 PLAN: Troponin elevation likely secondary to demand ischemia secondary to sepsis. Patient denies any chest pain at this time. - Continue on cardiac telemetry - Monitor for worsening signs or symptoms of chest pain (6) CAD (coronary artery disease) Current Visit: No Status: Chronic Assessment and Plan: History of cardiac stent placement 3 - No acute chest pain - EKG showed atrial fibrillation, but no acute ischemic changes PLAN: - Continue on telemetry - Monitor for signs symptoms of chest pain - Continue aspirin, statin, beta nayan (7) Atrial fibrillation Current Visit: Yes Status: Acute Assessment and Plan: History of atrial fibrillation. Currently managed with beta nayan and Coumadin - INR = 1.4-1.5 PLAN: - Continue Coumadin. Continue beta nayan - Monitor INR (8) CKD (chronic kidney disease) stage 3, GFR 30-59 ml/min Current Visit: No Status: Chronic Assessment and Plan: History of CAD stage III - BUN/Cr = 26/1.35. GFR = 39 PLAN: - Continue with Lasix - Avoid excessive IV fluids. Discontinue for now. - Monitor for worsening kidney function - Avoid nephrotoxins (9) Diabetes Current Visit: No Status: Chronic Assessment and Plan: History of diabetes PLAN: - Continue low-dose sliding scale - Accu-Cheks before meals and at bedtime - Diabetic diet (10) Gout Current Visit: No Status: Chronic Assessment and Plan: Chronic history of gout - Reporting knee pain today PLAN: - Continue allopurinol - Follow up knee x-rays (11) Hypothyroidism Current Visit: No Status: Chronic Assessment and Plan: History of hypothyroidism - Recent TSH = 0.5-6 PLAN: - Continue with Synthroid (12) Morbid obesity Current Visit: No Status: Chronic Assessment and Plan: BMI = 68.5 PLAN: - Lifestyle modification (13) DVT prophylaxis Current Visit: Yes Status: Acute Assessment and Plan: PLAN: - Coumadin DVT Prophylaxis: Coumadin - Time Spent with Patient Total time spent is greater than 50% in coordination of care (as documented) at patient's floor/unit and/or counseling patient: less than 15 minutes Plan of Care Discussed with: patient Internal Medicine: Result - Labs CBC & Chem 7: 04/03/19 08:38 04/03/19 08:38 Labs: Cardiac Enzymes 04/02/19 04/02/19 Range/Units 10:37 17:03 Troponin I 0.15 H* 0.13 H* (< 0.04) ng/mL - ABG Interpretation ABG results: PT/INR, D-dimer PT 17.3 Seconds (9.4-12.1) H 04/03/19 02:29 - Impressions Impressions Abdomen/Pelvis CT 04/02/19 10:00 IMPRESSION: 1. No intra-abdominopelvic hematoma 2. Slightly nodular contour of the liver suggests possible cirrhosis, with mild splenomegaly. No ascites 3. Interval passage of right ureteral stones. Persistent stone in the right renal pelvis and stones in right renal calyces, with haziness of the right peripelvic fat suggesting pyelitis 4. Sigmoid diverticulosis 5. Uncomplicated herniation of a portion of transverse colon through a ventral wall defect 6. Bubble of gas in the urinary bladder should be correlated with any recent catheterization or cystitis 7. Stable para-aortic lymph node 8. Status post cholecystectomy and hysterectomy D/ / Juan Arevalo MD / Juan Arevalo MD Interpreting Provider: Juan Arevalo MD <German Riley - Last Filed: 04/03/19 14:42> (1) Sepsis Qualifiers: Sepsis type: sepsis due to unspecified organism Qualified Code(s): A41.9 - Sepsis, unspecified organism (2) UTI (urinary tract infection) Qualifiers: Urinary tract infection type: acute cystitis Hematuria presence: with hematuria Qualified Code(s): N30.01 - Acute cystitis with hematuria (3) Cellulitis Qualifiers: Site of cellulitis: extremity Site of cellulitis of extremity: lower extremity Laterality: left Qualified Code(s): L03.116 - Cellulitis of left lower limb (4) CHF (congestive heart failure) Qualifiers: Heart failure type: systolic Heart failure chronicity: chronic Qualified Code(s): I50.22 - Chronic systolic (congestive) heart failure (6) CAD (coronary artery disease) Qualifiers: Coronary Disease-Associated Artery/Lesion type: [place] artery [place] vs. transplanted heart: [place] heart Associated angina: without angina Qualified Code(s): I25.10 - Atherosclerotic heart disease of [place] coronary artery without angina pectoris (9) Diabetes Qualifiers: Diabetes mellitus type: type 2 Diabetes mellitus director long term care insulin use: without pen[facility] use Diabetes mellitus complication status: with skin complications Diabetes mellitus complication detail: with foot ulcer Qualified Code(s): E11.621 - Type 2 diabetes mellitus with foot ulcer; L97.509 - Non- pressure chronic ulcer of other part of unspecified foot with unspecified severity (10) Gout Qualifiers: Gout site: unspecified site Gout etiology: unspecified cause Chronicity: chronic Presence of tophus: without tophus Qualified Code(s): M1A.9XX0 - Chronic gout, unspecified, without tophus (tophi) (11) Hypothyroidism Qualifiers: Hypothyroidism type: unspecified Qualified Code(s): E03.9 - Hypothyroidism, unspecified
[2019-04-03] MEDS ORDERED: IRON CARBONYL 65 MG PO SCH (09:00)
[2019-04-03] MEDS ORDERED: Levothyroxine 25 MCG TABLET PO SCH (09:00)
[2019-04-03 09:01] LABS: Basophils % 0.3 %; Hematocrit 35.4 % (35.3-44.9); Hemoglobin 10.9 g/dL (11.5-15.4); Immature Granulocytes % 1.3 % (0-4); Lymphocytes % 7.3 %; Mean Corpuscular HGB Conc 30.8 g/dL (31.6-35.5); Mean Corpuscular Hemoglobin 27.5 pg (28.0-33.3); Mean Corpuscular Volume 89.4 fL (83.0-100.0); Mean Platelet Volume 9.9 fL (9.4-12.4); Monocytes # 0.8 K/mcL (0.0-1.3); Monocytes % 5.8 %; Neutrophils # 12.1 K/mcL (1.6-8.9); Platelet Count 182 K/mcL (140-400); Red Blood Count 3.96 M/mcL (3.82-4.97); Red Cell Distribution Width 17.4 % (11.5-14.5); Segmented Neutrophils % 85.3 %; White Blood Count 14.2 K/mcL (4.3-11.1)
[2019-04-03 09:20] LABS: Calcium 8.7 mg/dL (8.6-10.3); Potassium 3.9 mEq/L (3.5-5.1)
[2019-04-03] MEDS: Cyanocobalamin (B-12) 1,000 MCG TABLET PO SCH (09:40)
[2019-04-03] MEDS: Furosemide 40 MG TABLET PO SCH (09:40)
[2019-04-03] MEDS: Aspirin Enteric Coated 81 MG Tablet PO SCH (09:41)
[2019-04-03] MEDS ORDERED: Naloxone 0.4 MG/ML INJ IVP PRN (11:01)
[2019-04-03] MEDS ORDERED: Vancomycin 1 EACH in 0.9 % Sodium Chloride 250 ML IVPB SCH (12:00)
[2019-04-03] MEDS: traMADol 50 MG TABLET PO PRN (14:10)
[2019-04-03] MEDS ORDERED: *HR* Warfarin 5 MG TABLET PO ONE (18:00)
[2019-04-04] MEDS: cefTRIAXone 2,000 MG in Water for inj. (sterile) 20 ML IVP SCH (05:38)
[2019-04-04] MEDS: Levothyroxine 25 MCG TABLET PO SCH (05:39)
[2019-04-04] MEDS: Acetaminophen 325 MG TABLET PO PRN (06:01)
[2019-04-04 07:21] LABS: Basophils # 0.1 K/mcL (0.0-0.2); Basophils % 0.6 %; Eosinophils # 0.2 K/mcL (0.0-0.6); Eosinophils % 1.8 %; Hematocrit 33.8 % (35.3-44.9); Hemoglobin 10.4 g/dL (11.5-15.4); Immature Granulocytes % 0.9 % (0-4); Lymphocytes # 1.3 K/mcL (0.6-4.6); Lymphocytes % 11.9 %; Mean Corpuscular HGB Conc 30.8 g/dL (31.6-35.5); Mean Corpuscular Hemoglobin 26.9 pg (28.0-33.3); Mean Corpuscular Volume 87.3 fL (83.0-100.0); Mean Platelet Volume 10.2 fL (9.4-12.4); Monocytes # 0.8 K/mcL (0.0-1.3); Monocytes % 7.1 %; Neutrophils # 8.3 K/mcL (1.6-8.9); Platelet Count 184 K/mcL (140-400); Red Blood Count 3.87 M/mcL (3.82-4.97); Red Cell Distribution Width 17.5 % (11.5-14.5); Segmented Neutrophils % 77.7 %; White Blood Count 10.7 K/mcL (4.3-11.1)
[2019-04-04 07:30] LABS: INR 1.4; Prothrombin Time 16.1 Seconds (9.4-12.1)
[2019-04-04 07:41] LABS: Calcium 8.7 mg/dL (8.6-10.3); Magnesium 1.8 mg/dL (1.6-2.6); Phosphorous 3.5 mg/dL (2.7-4.5); Potassium 3.8 mEq/L (3.5-5.1)
[2019-04-04] MEDS: Furosemide 40 MG TABLET PO SCH (08:55)
[2019-04-04] MEDS: Cyanocobalamin (B-12) 1,000 MCG TABLET PO SCH (08:55)
[2019-04-04] MEDS: Aspirin Enteric Coated 81 MG Tablet PO SCH (08:55)
[2019-04-04] MEDS: Insulin LISPRO 300 UNITS/3 ML VIAL SQ SCH ×4 (08:58→20:20)
--- NOTE | 2019-04-04 09:51 | Internal Med Progress Note ---
Hospitalist Progress Note - Encounter Date of Encounter: 04/04/19 Time of Encounter: 09:47 - Subjective Interval History: Ms Betacnourt is currently admitted for acute UTI and cellulitis of abdominal wall. She remains moderate to high risk due to potential for worsening clinical status. Ms Betancourt is doing OK today. She still has reddened area on her abdomen but feels it is better than yesterday. Has prior history of necrotizing fascitis on her abdominal wall. No fever but BP has been low throughout admission. No GI issues. No cough or dyspnea. - Exam Vitals: Temp Pulse Resp BP Pulse Ox 98.7 F 102 16 119/69 92 04/04/19 07:40 04/04/19 07:40 04/04/19 07:40 04/04/19 07:40 04/04/19 07:40 Exam: General: Alert and oriented. Comfortable at this time. Interactive and appropriate. Skin: Erythema noted to lower abdomen area. Warm to touch. Extends around L side. Slight scaliness midline. H: Normocephalic. EENT: EOMI, Mucus membranes moist. Cardiovascular: Normal S1 & S2, no murmurs Pulse irregular. Not tachycardic Lungs: Decreased breath sounds with no wheeze Abdomen: Obese. Soft. Multiple areas of scarring noted. Extremities: Moderate OA throughout. Neurological: Normal cognition and motor skills. Pulses: radial pulses normal +2. Rest of the physical exam is non contributory - Assessment and Plan (1) UTI (urinary tract infection) Current Visit: Yes Status: Acute Assessment and Plan: Pt presented with symptoms of UTI. Placed on Ceftriaxone. Culture now growing Klebsiella and Proteus species. Continue IV abx for now. Anticipate change to PO (Levaquin) in next 24-48 hours. (2) Sepsis Current Visit: Yes Status: Resolved Assessment and Plan: Due to UTI on admission - Klebsiella and Proteus Sepsis appears to have resolved at this time. (3) Cellulitis Current Visit: Yes Status: Acute Assessment and Plan: Pt has developed erythema and warmth of anterior abdominal wall extending to L. She feels it has improved some since yesterday. Has hx of necrotizing fascitis of her abdominal wall in the past (has had extensive surgery). Will broaden abx coverage at this time - Changed Ceftriaxone to Cefepime and Flagyl. Continue Vancomycin. Close monitoring due to history. (4) Atrial fibrillation Current Visit: Yes Status: Chronic Assessment and Plan: Rate controlled at this time. Continue home medications of beta nayan for rate control. Coumadin for anticoagulation. (5) CAD (coronary artery disease) Current Visit: No Status: Chronic Assessment and Plan: No acute issues at this time. Continuing home medications. (6) CHF (congestive heart failure) Current Visit: No Status: Chronic Assessment and Plan: Not in exacerbation at this time. Continue home medications. Not on GOMEZ I due to renal function. (7) CKD (chronic kidney disease) stage 3, GFR 30-59 ml/min Current Visit: No Status: Chronic Assessment and Plan: Monitoring renal function and avoiding nephrotoxins as able. Dose adjusting Vancomycin by pharmacy. (8) Diabetes Current Visit: No Status: Chronic Assessment and Plan: Blood sugars appear to be controlled at this time. Continue monitoring and coverage as ordered. (9) Hypothyroidism Current Visit: No Status: Chronic Assessment and Plan: Continue home synthroid dose. (10) Morbid obesity Current Visit: No Status: Chronic Assessment and Plan: Chronic issue - Time Spent with Patient Total time spent is greater than 50% in coordination of care (as documented) at patient's floor/unit and/or counseling patient: Internal Medicine: Result - Labs CBC & Chem 7: 04/04/19 06:43 04/04/19 06:43 Labs: Short CBC 04/04/19 Range/Units 06:43 WBC 10.7 (4.3-11.1) K/mcL Hgb 10.4 L (11.5-15.4) g/dL Hct 33.8 L (35.3-44.9) % Plt Count 184 (140-400) K/mcL Neutrophils # 8.3 (1.6-8.9) K/mcL BMP 04/04/19 06:43 Sodium 134 L Potassium 3.8 Chloride 97 L Carbon Dioxide 26 BUN 26 H Creatinine 1.29 H Glucose 143 H Calcium 8.7 - ABG Interpretation ABG results: PT/INR, D-dimer PT 16.1 Seconds (9.4-12.1) H 04/04/19 06:43 - Impressions Impressions Knee X-Ray 04/03/19 11:14 IMPRESSION: 1. Severe osteoarthritis of the right knee, most pronounced at the medial compartment. Small right knee joint effusion. The appearance is similar to the prior exam. 2. Moderate to advanced tricompartmental osteoarthritis of the left knee. Small left knee joint effusion. The appearance is similar to the prior exam. D/ / 04/03/2019 15:20:24 Bar Alfonso MD / malou Interpreting Provider: Bar Alfonso MD Consult Discharge Plan - Plan Referrals: Yoan Garcia DO [Primary Care Provider] - (1) UTI (urinary tract infection) Qualifiers: Urinary tract infection type: acute cystitis Hematuria presence: with hematuria Qualified Code(s): N30.01 - Acute cystitis with hematuria (2) Sepsis Qualifiers: Sepsis type: sepsis due to unspecified organism Qualified Code(s): A41.9 - Sepsis, unspecified organism (3) Cellulitis Qualifiers: Site of cellulitis: trunk Site of cellulitis of trunk: abdominal wall Qualified Code(s): L03.311 - Cellulitis of abdominal wall (4) Atrial fibrillation Qualifiers: Atrial fibrillation type: chronic Qualified Code(s): I48.2 - Chronic atrial fibrillation (5) CAD (coronary artery disease) Qualifiers: Coronary Disease-Associated Artery/Lesion type: [place] artery [place] vs. transplanted heart: [place] heart Associated angina: without angina Qualified Code(s): I25.10 - Atherosclerotic heart disease of [place] coronary artery without angina pectoris (6) CHF (congestive heart failure) Qualifiers: Heart failure type: systolic Heart failure chronicity: chronic Qualified Code(s): I50.22 - Chronic systolic (congestive) heart failure (8) Diabetes Qualifiers: Diabetes mellitus type: type 2 Diabetes mellitus director long term care insulin use: without [facility] use Diabetes mellitus complication status: with kidney complications Diabetes mellitus complication detail: with chronic kidney disease Chronic kidney disease stage: stage 3 (moderate) Qualified Code(s): E11.22 - Type 2 diabetes mellitus with diabetic chronic kidney disease; N18.3 - Chronic kidney disease, stage 3 (moderate) (9) Hypothyroidism Qualifiers: Hypothyroidism type: acquired Qualified Code(s): E03.9 - Hypothyroidism, un specified
[2019-04-04] MEDS: Cefepime HCl 2,000 MG in 0.9 % Sodium Chloride Mini Bag 100 ML IVPB SCH ×2 (12:56→17:39)
[2019-04-04] MEDS: MetroNIDAZOLE 500 MG/100 ML 500 MG/100 ML BAG IVPB SCH ×2 (14:04→18:20)
[2019-04-04] MEDS: *HR* OxyCODONE Immed Rel 5 MG TABLET PO PRN ×2 (14:04→20:18)
[2019-04-04] MEDS ORDERED: *HR* Warfarin 5 MG TABLET PO ONE (18:00)
[2019-04-04] MEDS: Cholecalciferol (D-3) 1,000 UNIT TABLET PO SCH (20:19)
[2019-04-05] MEDS: MetroNIDAZOLE 500 MG/100 ML 500 MG/100 ML BAG IVPB SCH ×3 (00:05→15:32)
[2019-04-05 03:39] LABS: Hematocrit 37.3 % (35.3-44.9); Hemoglobin 11.5 g/dL (11.5-15.4); Mean Corpuscular HGB Conc 30.8 g/dL (31.6-35.5); Mean Corpuscular Hemoglobin 27.3 pg (28.0-33.3); Mean Corpuscular Volume 88.4 fL (83.0-100.0); Mean Platelet Volume 9.8 fL (9.4-12.4); Platelet Count 220 K/mcL (140-400); Red Blood Count 4.22 M/mcL (3.82-4.97); Red Cell Distribution Width 17.4 % (11.5-14.5); White Blood Count 12.3 K/mcL (4.3-11.1)
[2019-04-05 03:44] LABS: INR 1.6; Prothrombin Time 18.7 Seconds (9.4-12.1)
[2019-04-05 03:56] LABS: Calcium 8.9 mg/dL (8.6-10.3); Magnesium 1.7 mg/dL (1.6-2.6); Potassium 3.8 mEq/L (3.5-5.1)
[2019-04-05] MEDS: Levothyroxine 25 MCG TABLET PO SCH (04:28)
[2019-04-05] MEDS: Cefepime HCl 2,000 MG in 0.9 % Sodium Chloride Mini Bag 100 ML IVPB SCH ×2 (04:28→17:29)
[2019-04-05] MEDS: Magnesium Oxide 400 MG TABLET PO SCH (07:52)
[2019-04-05] MEDS: Aspirin Enteric Coated 81 MG Tablet PO SCH (07:52)
[2019-04-05] MEDS: Cholecalciferol (D-3) 1,000 UNIT TABLET PO SCH ×2 (07:52→20:37)
[2019-04-05] MEDS: Furosemide 40 MG TABLET PO SCH (07:52)
[2019-04-05] MEDS: Insulin LISPRO 300 UNITS/3 ML VIAL SQ SCH ×4 (07:53→20:39)
[2019-04-05] MEDS: Cyanocobalamin (B-12) 1,000 MCG TABLET PO SCH (07:53)
[2019-04-05] MEDS: *HR* OxyCODONE Immed Rel 5 MG TABLET PO PRN ×2 (08:29→20:38)
[2019-04-05] MEDS ORDERED: NON-FORMULARY MEDICATION 1 EACH EACH (Levothyroxine Sodium [Synthroid] 200 MCG) PO SCH (09:00)
--- NOTE | 2019-04-05 09:26 | Internal Med Progress Note ---
Hospitalist Progress Note - Encounter Date of Encounter: 04/05/19 Time of Encounter: 09:15 - Subjective Interval History: Ms Betancourt is curerntly admitted for sepsis related to UTI. She remains moderate to high risk due to potential for worsening clinical status. Ms Betancourt is having some lower abd discomfort. Feels occasional sharp pain. No fever or chills but is tachycardic. No CP or SOB. Redness in abdomen seems better she thinks. No GI issues. - Exam Vitals: Temp Pulse Resp BP Pulse Ox 98.9 F 107 18 127/82 91 04/05/19 07:16 04/05/19 07:16 04/05/19 07:16 04/05/19 07:16 04/05/19 07:16 Exam: General: Alert and oriented. Mild distress when moves around. Skin: Erythema of lower abdomen appears to be slightly better. Does not go around L side as much. Still warm to touch. H: Normocephalic. EENT: EOMI, Mucus membranes moist. Cardiovascular: Normal S1 & S2, no murmurs Pulse irregular. Tachycardic at this time. Lungs: Decreased breath sounds. No wheeze, rales, rhonchi. Abdomen: Obese. Soft. Multiple areas of scarring noted. Nontender. No skin breakdown noted. Extremities: Moderate OA throughout. Dressing intact R foot. Neurological: Normal cognition and motor skills. Pulses: radial pulses normal +2. Rest of the physical exam is non contributory - Assessment and Plan (1) UTI (urinary tract infection) Current Visit: Yes Status: Acute Assessment and Plan: Pt presented with symptoms of UTI. Placed on Ceftriaxone. Culture now growing Klebsiella and Proteus species. Changed to Cefepime yesterday to cover skin as well. Anticipate Levaquin at discharge. (2) Sepsis Current Visit: Yes Status: Resolved Assessment and Plan: Due to UTI on admission - Klebsiella and Proteus Heartrate elevated again today. Following closely. (3) Cellulitis Current Visit: Yes Status: Acute Assessment and Plan: Pt has developed erythema and warmth of anterior abdominal wall extending to L. Appears to be a little better today with change of abx. Due to continued symptoms and pain will get CT with oral contrast to evaluate lower abdomen and skin area (hx of nec fasc) (4) Atrial fibrillation Current Visit: Yes Status: Chronic Assessment and Plan: Tachycardic this AM. Just got her meds. (5) CAD (coronary artery disease) Current Visit: No Status: Chronic Assessment and Plan: No acute issues at this time. Continuing home medications. (6) CHF (congestive heart failure) Current Visit: No Status: Chronic Assessment and Plan: Not in exacerbation at this time. Continue home medications. Not on GOMEZ I due to renal function. (7) CKD (chronic kidney disease) stage 3, GFR 30-59 ml/min Current Visit: No Status: Chronic Assessment and Plan: Monitoring renal function and avoiding nephrotoxins as able. Creatinine slightly higher today but not significant. (8) Diabetes Current Visit: No Status: Chronic Assessment and Plan: Blood sugars appear to be controlled No change for now. (9) Hypothyroidism Current Visit: No Status: Chronic Assessment and Plan: Continue home synthroid dose. (10) Morbid obesity Current Visit: No Status: Chronic Assessment and Plan: Chronic issue - Time Spent with Patient Total time spent is greater than 50% in coordination of care (as documented) at patient's floor/unit and/or counseling patient: Internal Medicine: Result - Labs CBC & Chem 7: 04/05/19 03:06 04/05/19 03:06 Labs: Short CBC 04/05/19 Range/Units 03:06 WBC 12.3 H (4.3-11.1) K/mcL Hgb 11.5 (11.5-15.4) g/dL Hct 37.3 (35.3-44.9) % Plt Count 220 (140-400) K/mcL BMP 04/05/19 03:06 Sodium 132 L Potassium 3.8 Chloride 95 L Carbon Dioxide 26 BUN 26 H Creatinine 1.39 H Glucose 164 H Calcium 8.9 - ABG Interpretation ABG results: PT/INR, D-dimer PT 18.7 Seconds (9.4-12.1) H 04/05/19 03:06 Consult Discharge Plan - Plan Referrals: Yoan Garcia DO [Primary Care Provider] - (1) UTI (urinary tract infection) Qualifiers: Urinary tract infection type: acute cystitis Hematuria presence: with hematuria Qualified Code(s): N30.01 - Acute cystitis with hematuria (2) Sepsis Qualifiers: Sepsis type: sepsis due to unspecified organism Qualified Code(s): A41.9 - Sepsis, unspecified organism (3) Cellulitis Qualifiers: Site of cellulitis: trunk Site of cellulitis of trunk: abdominal wall Qualified Code(s): L03.311 - Cellulitis of abdominal wall (4) Atrial fibrillation Qualifiers: Atrial fibrillation type: chronic Qualified Code(s): I48.2 - Chronic atrial fibrillation (5) CAD (coronary artery disease) Qualifiers: Coronary Disease-Associated Artery/Lesion type: [place] artery [place] vs. transplanted heart: [place] heart Associated angina: without angina Qualified Code(s): I25.10 - Atherosclerotic heart disease of [place] coronary artery without angina pectoris (6) CHF (congestive heart failure) Qualifiers: Heart failure type: systolic Heart failure chronicity: chronic Qualified Code(s): I50.22 - Chronic systolic (congestive) heart failure (8) Diabetes Qualifiers: Diabetes mellitus type: type 2 Diabetes mellitus terminal gauger insulin use: without terminal gauger use Diabetes mellitus complication status: with kidney complications Diabetes mellitus complication detail: with chronic kidney disease Chronic kidney disease stage: stage 3 (moderate) Qualified Code(s): E11.22 - Type 2 diabetes mellitus with diabetic chronic kidney disease; N18.3 - Chronic kidney disease, stage 3 (moderate) (9) Hypothyroidism Qualifiers: Hypothyroidism type: acquired Qualified Code(s): E03.9 - Hypothyroidism, unspecified
[2019-04-05] MEDS ORDERED: *HR* Warfarin 5 MG TABLET PO ONE (18:00)
[2019-04-05] MEDS: traMADol 50 MG TABLET PO PRN (20:38)
[2019-04-06] MEDS: MetroNIDAZOLE 500 MG/100 ML 500 MG/100 ML BAG IVPB SCH (00:40)
[2019-04-06] MEDS: Cefepime HCl 2,000 MG in 0.9 % Sodium Chloride Mini Bag 100 ML IVPB SCH (05:09)
[2019-04-06] MEDS: Levothyroxine 25 MCG TABLET PO SCH (05:09)
[2019-04-06 06:18] LABS: Hematocrit 36.2 % (35.3-44.9); Hemoglobin 11.2 g/dL (11.5-15.4); Mean Corpuscular HGB Conc 30.9 g/dL (31.6-35.5); Mean Corpuscular Hemoglobin 26.9 pg (28.0-33.3); Mean Corpuscular Volume 86.8 fL (83.0-100.0); Mean Platelet Volume 9.9 fL (9.4-12.4); Platelet Count 231 K/mcL (140-400); Red Blood Count 4.17 M/mcL (3.82-4.97); Red Cell Distribution Width 17.2 % (11.5-14.5); White Blood Count 10.5 K/mcL (4.3-11.1)
[2019-04-06 06:26] LABS: INR 1.8; Prothrombin Time 19.9 Seconds (9.4-12.1)
[2019-04-06 06:37] LABS: Calcium 9.4 mg/dL (8.6-10.3); Potassium 3.7 mEq/L (3.5-5.1)
[2019-04-06] MEDS ORDERED: Aminoglycoside Consult 1 EACH MC ONE (07:45)
--- NOTE | 2019-04-06 07:51 | Internal Med Progress Note ---
<Yordan Hatfield - Last Filed: 04/06/19 14:05> Hospitalist Progress Note - Encounter Date of Encounter: 04/06/19 - Exam Vitals: Temp Pulse Resp BP Pulse Ox 98.5 F 100 19 133/87 92 04/06/19 11:47 04/06/19 11:47 04/06/19 11:47 04/06/19 11:47 04/06/19 11:47 - Assessment and Plan (1) Ureteral stone with hydronephrosis Current Visit: Yes Status: Acute (2) UTI (urinary tract infection) Current Visit: Yes Status: Acute (3) Diabetes Current Visit: No Status: Chronic (4) Morbid obesity Current Visit: No Status: Chronic (5) CAD (coronary artery disease) Current Visit: No Status: Chronic (6) Cellulitis Current Visit: Yes Status: Acute (7) CHF (congestive heart failure) Current Visit: No Status: Chronic (8) CKD (chronic kidney disease) stage 3, GFR 30-59 ml/min Current Visit: No Status: Chronic (9) Hypothyroidism Current Visit: No Status: Chronic (10) Sepsis Current Visit: Yes Status: Resolved (11) Atrial fibrillation Current Visit: Yes Status: Chronic - Time Spent with Patient Total time spent is greater than 50% in coordination of care (as documented) at patient's floor/unit and/or counseling patient: Internal Medicine: Result - Labs CBC & Chem 7: 04/06/19 06:00 04/06/19 06:00 Labs: Short CBC 04/06/19 Range/Units 06:00 WBC 10.5 (4.3-11.1) K/mcL Hgb 11.2 L (11.5-15.4) g/dL Hct 36.2 (35.3-44.9) % Plt Count 231 (140-400) K/mcL BMP 04/06/19 06:00 Sodium 134 L Potassium 3.7 Chloride 95 L Carbon Dioxide 30 H BUN 26 H Creatinine 1.28 H Glucose 160 H Calcium 9.4 - ABG Interpretation ABG results: PT/INR, D-dimer PT 19.9 Seconds (9.4-12.1) H 04/06/19 06:00 - Impressions Impressions Abdomen/Pelvis CT 04/05/19 14:00 IMPRESSION: Moderate to severe right-sided hydronephrosis with distal right ureteral obstructing stone. Ventral abdominal hernia within the pelvis. The remainder of the abdomen and pelvis is normal. D/ / 04/05/2019 15:22:24 Zain Arana MD / kwaku Interpreting Provider: Zain Arana MD Consult Discharge Plan - Plan Referrals: Yoan Garcia, [Primary Care Provider] - (ecf) - Attending Attestation I examined this patient and my medical decision-making was reviewed with the Resident Physician on 04/06/19. I agree with the documented findings, disposition and treatment plan as described except to the extent set forth below. Ms Betancourt is currently admitted for UTI and obstructive uropathy. She is to go for stent placement. She remains moderate to high risk due to potential for worsening clinical status. Ms Betancourt is waiting surgery. No fever or chills. Tolerating abx. Skin appears to be improving. Some loose stool - not diarrhea. Anticipate d/c tomorrow if everything remains stable. <Pita Mittal - Last Filed: 04/06/19 17:03> Hospitalist Progress Note - Encounter Date of Encounter: 04/06/19 Time of Encounter: 10:52 - Subjective Interval History: Patient seen and examined at bedside. She is resting comfortably. She reports the rash on her lower abdomen has improved and is no longer tender to touch. She denies fever, chills, nausea, vomiting, chest pain, shortness of breath. She is awaiting for urology to take her to the OR for stent placement. She has no other complaints. - Exam Vitals: Temp Pulse Resp BP Pulse Ox 98.2 F 110 19 118/75 91 04/06/19 07:29 04/06/19 07:29 04/06/19 07:29 04/06/19 07:29 04/06/19 07:29 Exam: Gen.: Vitals noted. No acute distress. AAOx3, morbidly obese HEENT: oropharynx clear, Normocephalic, atraumatic Cardiac: RRR, no murmur, +S1/S2 Pulmonary: CTA bilaterally, no wheezes, rales or rhonchi, equal chest expansion Abdomen: soft, nontender, Bowel sounds noted, no guarding skin: faint macular rash on pannus of left side. some mild erythema of the left side skin folds Extremities:+ BLE edema, nontender calf, no cyanosis or clubbing Neuro: A&Ox3, moves all extremities, no focal deficits Psych: Appropriate mood and behavior - Assessment and Plan (1) UTI (urinary tract infection) Current Visit: Yes Status: Acute Assessment and Plan: Patient with symptoms of urinary tract infection with dysuria. -Urinalysis showing leukocyte esterase, nitrite, WBC 5-15, blood -urine culture growing Klebsiella and Proteus Plan -currently on cefepime and vancomycin. Bactrim DS one tablet daily tomorrow (2) Ureteral stone with hydronephrosis Current Visit: Yes Status: Acute Assessment and Plan: Right distal ureteral obstructing stone with moderate to severe right-sided hydronephrosis -abdomen/pelvis CT demonstrating Right distal ureteral obstructing stone with moderate to severe right-sided hydronephrosis -currently being treated for urinary tract infection -afebrile, hemodynamically stable -WBC WNL Plan -urology consulted and planning to take patient for stent placement with plans for staging removal stones. -NPO until procedure -continue to monitor urine output -antibiotics as above (3) Diabetes Current Visit: No Status: Chronic Assessment and Plan: History of diabetes not on insulin -glucose controlled -continue low-dose sliding scale insulin -continue Accu check -continue diabetic diet (4) CAD (coronary artery disease) Current Visit: No Status: Chronic Assessment and Plan: History of CAD taking metoprolol on aspirin, atorvastatin, lisinopril, Lasix. -Continue home medications (5) Cellulitis Current Visit: Yes Status: Acute Assessment and Plan: Patient developed and erythema and warmth of the left anterior pannus extending to her side. -The erythema is improving and she is no longer tender -continue antibiotics which are the same as above -discontinued Flagyl -continue to monitor (6) CHF (congestive heart failure) Current Visit: No Status: Chronic Assessment and Plan: History of CHF taking metoprolol on aspirin, atorvastatin, lisinopril, Lasix. -Continue home medications (7) CKD (chronic kidney disease) stage 3, GFR 30-59 ml/min Current Visit: No Status: Chronic Assessment and Plan: History of chronic kidney disease. Baseline creatinine 1.2-1.4 -creatinine is at baseline -appropriate urine output -avoid nephrotoxic agents and renal dust medications -will continue to monitor serum creatinine and urine output (8) Sepsis Current Visit: Yes Status: Resolved Assessment and Plan: Resolved. -Afebrile, hemodynamically stable -WBC WNL -will continue to monitor. -On admission patient was septic with 3 SIRS criteria: temperature 102.2, tachyc ardia, WBC 14.8. source of infection UTI. Patient received IV fluids per sepsis protocol. -Blood cultures negative -urine culture showing Proteus and Salazar Adela (9) Atrial fibrillation Current Visit: Yes Status: Chronic Assessment and Plan: History of atrial fibrillation on anticoagulation taking Coumadin. Rate controlled taking metoprolol. -Heart rate controlled -continue Coumadin and metoprolol (10) Morbid obesity Current Visit: No Status: Chronic Assessment and Plan: Needs lifestyle changes (11) Hypothyroidism Current Visit: No Status: Chronic Assessment and Plan: History of hypothyroidism, continue home levothyroxine. - Time Spent with Patient Total time spent is greater than 50% in coordination of care (as documented) at patient's floor/unit and/or counseling patient: Internal Medicine: Result - Labs CBC & Chem 7: 04/06/19 06:00 04/06/19 06:00 Labs: Short CBC 04/06/19 Range/Units 06:00 WBC 10.5 (4.3-11.1) K/mcL Hgb 11.2 L (11.5-15.4) g/dL Hct 36.2 (35.3-44.9) % Plt Count 231 (140-400) K/mcL [facility] 04/06/19 06:00 Sodium 134 L Potassium 3.7 Chloride 95 L Carbon Dioxide 30 H BUN 26 H Creatinine 1.28 H Glucose 160 H Calcium 9.4 - ABG Interpretation ABG results: PT/INR, D-dimer PT 19.9 Seconds (9.4-12.1) H 04/06/19 06:00 - Impressions Impressions Abdomen/Pelvis CT 04/05/19 14:00 IMPRESSION: Moderate to severe right-sided hydronephrosis with distal right ureteral obstructing stone. Ventral abdominal hernia within the pelvis. The remainder of the abdomen and pelvis is normal. D/ / 04/05/2019 15:22:24 Zain Arana MD / kwaku Interpreting Provider: Zain Arana MD <Yordan Hatfield - Last Filed: 04/06/19 14:05> (2) UTI (urinary tract infection) Qualifiers: Urinary tract infection type: acute cystitis Hematuria presence: with hematuria Qualified Code(s): N30.01 - Acute cystitis with hematuria (3) Diabetes Qualifiers: Diabetes mellitus type: type 2 Diabetes mellitus middle or intermediate school principal insulin use: without middle or intermediate school principal use Diabetes mellitus complication status: with kidney complications Diabetes mellitus complication detail: with chronic kidney disease Chronic kidney disease stage: stage 3 (moderate) Qualified Code(s): E11.22 - Type 2 diabetes mellitus with diabetic chronic kidney disease; N18.3 - Chronic kidney disease, stage 3 (moderate) (5) CAD (coronary artery disease) Qualifiers: Coronary Disease-Associated Artery/Lesion type: [place] artery [place] vs. transplanted heart: [place] heart Associated angina: without angina Qualified Code(s): I25.10 - Atherosclerotic heart disease of [place] coronary artery without angina pectoris (6) Cellulitis Qualifiers: Site of cellulitis: trunk Site of cellulitis of trunk: abdominal wall Qualified Code(s): L03.311 - Cellulitis of abdominal wall (7) CHF (congestive heart failure) Qualifiers: Heart failure type: systolic Heart failure chronicity: chronic Qualified Cod e(s): I50.22 - Chronic systolic (congestive) heart failure (9) Hypothyroidism Qualifiers: Hypothyroidism type: acquired Qualified Code(s): E03.9 - Hypothyroidism, unspecified (10) Sepsis Qualifiers: Sepsis type: sepsis due to unspecified organism Qualified Code(s): A41.9 - Sepsis, unspecified organism (11) Atrial fibrillation Qualifiers: Atrial fibrillation type: chronic Qualified Code(s): I48.2 - Chronic atrial f ibrillation <Pita Mittal - Last Filed: 04/06/19 17:03> (1) UTI (urinary tract infection) Qualifiers: Urinary tract infection type: acute cystitis Hematuria presence: with hematuria Qualified Code(s): N30.01 - Acute cystitis with hematuria (3) Diabetes Qualifiers: Diabetes mellitus type: type 2 Diabetes mellitus middle or intermediate school principal insulin use: without middle or intermediate school principal use Diabetes mellitus complication status: with kidney complications Diabetes mellitus complication detail: with chronic kidney disease Chronic kidney disease stage: stage 3 (moderate) Qualified Code(s): E11.22 - Type 2 diabetes mellitus with diabetic chronic kidney disease; N18.3 - Chronic kidney disease, stage 3 (moderate) (4) CAD (coronary artery disease) Qualifiers: Coronary Disease-Associated Artery/Lesion type: [place] artery [place] vs. transplanted heart: [place] heart Associated angina: without angina Qualified Code(s): I25.10 - Atherosclerotic heart disease of [place] coronary artery without angina pectoris (5) Cellulitis Qualifiers: Site of cellulitis: trunk Site of cellulitis of trunk: abdominal wall Qualified Code(s): L03.311 - Cellulitis of abdominal wall (6) CHF (congestive heart failure) Qualifiers: Heart failure type: systolic Heart failure chronicity: chronic Qualified Code(s): I50.22 - Chronic systolic (congestive) heart failure (8) Sepsis Qualifiers: Sepsis type: sepsis due to unspecified organism Qualified Code(s): A41.9 - Sepsis, unspecified organism (9) Atrial fibrillation Qualifiers: Atrial fibrillation type: chronic Qualified Code(s): I48.2 - Chronic atrial fibrillation (11) Hypothyroidism Qualifiers: Hypothyroidism type: acquired Qualified Code(s): E03.9 - Hypothyroidism, unspecified
[2019-04-06] MEDS: Cyanocobalamin (B-12) 1,000 MCG TABLET PO SCH (08:14)
[2019-04-06] MEDS: Magnesium Oxide 400 MG TABLET PO SCH (08:14)
[2019-04-06] MEDS: Cholecalciferol (D-3) 1,000 UNIT TABLET PO SCH ×2 (08:15→21:13)
[2019-04-06] MEDS: Furosemide 40 MG TABLET PO SCH (08:15)
[2019-04-06] MEDS: Aspirin Enteric Coated 81 MG Tablet PO SCH (08:15)
[2019-04-06] MEDS: Insulin LISPRO 300 UNITS/3 ML VIAL SQ SCH ×2 (08:16→11:45)
--- NOTE | 2019-04-06 13:33 | Urology - Consult Note ---
<Juli Petersen N - Last Filed: 04/06/19 13:29> Date of Encounter: 04/06/19 Time of Encounter: 13:00 - Assessment and Plan (1) Ureteral stone with hydronephrosis Current Visit: Yes Status: Acute Assessment and plan: Patient is a 68-year-old female who presents with right distal ureteral calculi, moderate to severe hydronephrosis and urinary tract infection. Vital signs are currently stable and afebrile. Patient has been transitioned to IV cefepime for urinary tract infection. We discussed risks and benefits of surgery, and patient and her family both verbalized understanding. Consent has been signed, and patient is prepared undergo a cystoscopy, right retrograde pyelogram and right ureteral stent placement. Patient will remain nothing by mouth. (2) UTI (urinary tract infection) Current Visit: Yes Status: Acute Assessment and plan: Patient is a 68-year-old female who presents with Klebsiella and Proteus urinary tract infection. Vital signs are stable and afebrile, although, patient sustained a maximum temperature to 102.7F on admission. Patient is receiving IV cefepime. Qualifiers: Urinary tract infection type: acute cystitis Hematuria presence: with hematuria Qualified Code(s): N30.01 - Acute cystitis with hematuria (3) Nephrolithiasis Current Visit: Yes Status: Acute Assessment and plan: Patient is a 68-year-old female who presents with right nephrolithiasis. Initial CT performed on 04/02/2019 did not reveal any ureteral calculi, but repeat CT on 04/05/2019 revealed multiple distal right ureteral calculi. There are several stones observed in the right kidney. Patient is a long-standing history of nephrolithiasis. We will plan to proceed with urinary diversion with ureteral stent placement and discuss definitive stone extraction with staged stone extraction procedure as an outpatient after infection is resolved. Urology CN:ELDER Consult date: 04/06/19 Reason for consult Urology: Hydronephrosis (right ureteral stones, UTI) Requesting physician: Pita Mittal History of present illness: Patient is a 68-year-old female who presents with a right ureteral stone, moderate to severe hydronephrosis and urinary tract infection. Patient was initially admitted to the hospital on 04/02/2019 after a reported fall. Patient is currently being anticoagulated with Coumadin, and patient's daughter states over the last week she has experienced weakness, increased fatigue, cloudy urine and eventually developed a fever to 102.2F. patient was brought to the emergency department where she underwent a CT of the abdomen and pelvis revealing right nephrolithiasis but no discrete ureteral calculus. Patient's urine culture has grown Klebsiella and Proteus, and patient is receiving IV cef epime. Patient has multiple contributing comorbidities including morbid obesity, type 2 diabetes mellitus, nephrolithiasis, stage III chronic kidney disease, and she is not established patient with Dr. Bennett. Patient has previously undergone 2 ureteroscopic stone extractions with stent placement. Patient denies any known family history of renal stones. The primary team repeated a CT scan on 04/05/2019 revealing several small distal right ureteral stones, largest 5 mm and moderate to severe right hydronephrosis. Patient admits to continued flank pain, lower abdominal pain, frequency and urgency. Currently, patient is sitting upright in bed comfortably in no apparent distress, she denies any fever, chills, chest pain, dyspnea, dysuria, hesitancy or gross hematuria. Past Med Surg Social Fam HX - Past Medical History Medical history: non-contributory, atrial fibrillation, cancer, diabetes, kidney stones, RA, renal disease Additional medical history: Endometrial Cervical cancer Psychiatric history: anxiety, depression - Past Surgical History Surgical History: cholecystectomy Additional surgical history: Necrotizing fasciitis in 2010 to a surgical incision. Gallbladder gangreen surgery 2001. Hysterectomy 2010. Coronary stent placement 2006. Ureteral stent placement december 2018 - Social History Smoking Status: Former smoker Smokeless Tobacco Status: No Alcohol use: none Drug use: none - Family History Father Living Status: Hx Family Cancer: Yes (Metastatic lung cancer) Medications and Allergies Acetaminophen [Extra Strength Non-Aspirin] 1,000 mg PO Q6H PRN 04/02/19 [History] Allopurinol [Zyloprim 100 MG] 200 mg PO DAILY 04/02/19 [History] Ascorbic Acid [Vitamin C] 500 mg PO DAILY 04/02/19 [History] Aspirin [Adult Aspirin] 81 mg PO DAILY 04/02/19 [History] Citalopram [CeleXA] 20 mg PO DAILY 04/02/19 [History] Cyanocobalamin (Vitamin B-12) [Vitamin B-12] 1,000 mcg PO MOFR 04/02/19 [History] Fish Oil/Dha/Epa [Fish Oil 1,200 mg Fish Oil] 2,400 mg PO BID 04/02/19 [History] Furosemide [Lasix] 40 mg PO DAILY 04/02/19 [History] Glimepiride [Amaryl] 2.5 mg PO QAM 04/02/19 [History] Levothyroxine [Synthroid] 25 mcg PO QAM 04/02/19 [History] Magnesium Oxide [Mag-Oxide Magnesium] 400 mg PO DAILY 04/02/19 [History] Metoprolol [Lopressor] 12.5 mg PO BID 04/02/19 [History] Oxybutynin [Ditropan] 2.5 mg PO BID 04/02/19 [History] Potassium 99 mg PO DAILY 04/02/19 [History] Warfarin [Coumadin] 5 mg PO 1800 04/02/19 [History] Atorvastatin Calcium [Lipitor] 20 mg PO HS 04/03/19 [History] Cholecalciferol (Vitamin D3) [Vitamin D3] 2,000 units PO BID 04/03/19 [History] DiphenhydraMINE [Benadryl] 25 mg PO HS PRN 04/03/19 [History] Ferrous Sulfate 650 mg PO DAILY 04/03/19 [History] Glimepiride [Amaryl] 1 mg PO QPM 04/03/19 [History] Levothyroxine Sodium [Synthroid] 200 mcg PO QAM 04/03/19 [History] Lisinopril [Zestril] 5 mg PO DAILY 04/03/19 [History] Allergy/AdvReac Type Severity Reaction Status Date / Time piperacillin [From Zosyn] Allergy See Verified 04/02/19 03:37 Comments tazobactam [From Zosyn] Allergy See Verified 04/02/19 03:37 Comments Review of Systems - Constitutional fatigue, fever(s), weakness, no chills - EENT Nose, mouth and throat: no dizziness, no headache(s) - Cardiovascular no chest pain, no diaphoresis, no dyspnea - Respiratory no cough, no dyspnea - Gastrointestinal abdominal pain, nausea, no vomiting - Genitourinary Genitourinary: flank pain, urinary frequency, urinary urgency, no change in urinary stream, no dysuria, no hematuria, no urinary hesitancy, no urinary incontinence - Musculoskeletal back pain, muscle weakness - Integumentary no erythema, no rash - Neurological no confusion, no syncope - Psychiatric no anxiety, no confusion - Hematologic/Lymphatic easy bleeding - Allergic/Immunologic no throat swelling, no wheezing Exam Initial Vital Signs Temp Pulse Resp BP Pulse Ox 102.2 F H 110 21 118/75 96 04/02/19 03:38 04/02/19 03:38 04/02/19 03:38 04/02/19 03:38 04/02/19 03:38 - General physical appearance Present: no distress, no pain, obese - Eyes Present: PERRL, normal ocular movement - ENT Present: normal nares, no hearing loss, no congestion - Neck Present: no masses, trachea midline, no lymphadenopathy - Cardiovascular Cardiovascular exam IM: tachycardia - Abdomen Abdomen: Present: soft, non tender. Absent: distended - Genitourinary Present: other (No CVAT) - Integumentary Present: no rash, no abnormal pigmentation - Neurologic Present: normal coordination - Musculoskeletal Present: other (Normal posture) Urology Results - Labs 04/06/19 06:00 04/06/19 06:00 Abnormal lab results WBC 12.3 K/mcL (4.3-11.1) H 04/05/19 03:06 Hgb 11.2 g/dL (11.5-15.4) L 04/06/19 06:00 Hct 33.8 % (35.3-44.9) L 04/04/19 06:43 MCH 26.9 pg (28.0-33.3) L 04/06/19 06:00 MCHC 30.9 g/dL (31.6-35.5) L 04/06/19 06:00 RDW 17.2 % (11.5-14.5) H 04/06/19 06:00 12.1 K/mcL (1.6-8.9) H 04/03/19 08:38 Nucleated RBCs/100 WBC 0.1 /100 WBC (0) H 04/02/19 04:35 PT 19.9 Seconds (9.4-12.1) H 04/06/19 06:00 Sodium 134 mEq/L (136-145) L 04/06/19 06:00 Chloride 95 mEq/L (98-107) L 04/06/19 06:00 Carbon Dioxide 30 mEq/L (23-29) H 04/06/19 06:00 BUN 26 mg/dL (8-23) H 04/06/19 06:00 1.28 mg/dL (0.60-1.20) H 04/06/19 06:00 Est GFR ( Amer) 50 (> 60) L 04/06/19 06:00 Est GFR (Non-Af Amer) 41 (> 60) L 04/06/19 06:00 Glucose 160 mg/dL (70-105) H 04/06/19 06:00 POC Glucose 145 mg/dL (70-99) H 04/05/19 20:26 Phosphorus 2.6 mg/dL (2.7-4.5) L 04/02/19 04:35 0.3 mg/dL (0.0-0.2) H 04/02/19 04:35 123 Units/L (34-104) H 04/02/19 04:35 0.13 ng/mL (< 0.04) H* 04/02/19 17:03 3.3 g/dL (3.5-5.7) L 04/02/19 04:35 4.3 g/dL (2.4-3.5) H 04/02/19 04:35 0.8 (1.1-2.2) L 04/02/19 04:35 Turbid (Clear) A 04/02/19 04:00 100 mg/dL (Neg-Trace) H 04/02/19 04:00 Moderate (Negative) H 04/02/19 04:00 Positive (Negative) A 04/02/19 04:00 Ur Leukocyte Esterase Large (Negative) H 04/02/19 04:00 15-30 per hpf (0-3) H 04/02/19 04:00 5-15 per hpf (0-3) H 04/02/19 04:00 Ur Squamous Epith Cells Many per lpf (None-Few) H 04/02/19 04:00 Many per hpf (None-Few) H 04/02/19 04:00 Ur Culture Indicated? YES (NO) A 04/02/19 04:00 Vancomycin Trough 17 mcg/mL (5-10) H 04/06/19 06:00 Diabetes panel 04/06/19 Range/Units 06:00 Sodium 134 L (136-145) mEq/L Potassium 3.7 (3.5-5.1) mEq/L Chloride 95 L (98-107) mEq/L Carbon Dioxide 30 H (23-29) mEq/L BUN 26 H (8-23) mg/dL Creatinine 1.28 H (0.60-1.20) mg/dL Glucose 160 H (70-105) mg/dL Calcium 9.4 (8.6-10.3) mg/dL Calcium panel 04/06/19 Range/Units 06:00 Calcium 9.4 (8.6-10.3) mg/dL Pituitary panel 04/06/19 Range/Units 06:00 Sodium 134 L (136-145) mEq/L Potassium 3.7 (3.5-5.1) mEq/L Chloride 95 L (98-107) mEq/L Carbon Dioxide 30 H (23-29) mEq/L BUN 26 H (8-23) mg/dL Creatinine 1.28 H (0.60-1.20) mg/dL Glucose 160 H (70-105) mg/dL Calcium 9.4 (8.6-10.3) mg/dL Adrenal panel 04/06/19 Range/Units 06:00 Sodium 134 L (136-145) mEq/L Potassium 3.7 (3.5-5.1) mEq/L Chloride 95 L (98-107) mEq/L Carbon Dioxide 30 H (23-29) mEq/L BUN 26 H (8-23) mg/dL Creatinine 1.28 H (0.60-1.20) mg/dL Glucose 160 H (70-105) mg/dL Calcium 9.4 (8.6-10.3) mg/dL All other labs normal. - Imaging CT scan - abdomen: report reviewed, image reviewed CT scan - pelvis: report reviewed, image reviewed Consult Discharge Plan - Plan Referrals: Yoan Garcia, [Primary Care Provider] - (ecf) <Mart Khalil - Last Filed: 04/06/19 17:09> Date of Encounter: 04/06/19 - Assessment and Plan (1) UTI (urinary tract infection) Current Visit: Yes Status: Acute Qualifiers: Urinary tract infection type: acute cystitis Hematuria presence: with hematuria Qualified Code(s): N30.01 - Acute cystitis with hematuria (2) Ureteral stone with hydronephrosis Current Visit: Yes Status: Acute Assessment and plan: Patient seen and examined independently. History, review of systems and physical exam findings of PA verified. All pertinent imaging reviewed. I am in agreement with the assessment and plan as outlined by our Urologic Surgery Department Physician Donor Relations Officer, Nicola. Discussed findings with patient and urgent need for urinary diversion given obstruction in setting of active urinary tract infection. Discussed risks benefits alternatives. Plan: Urgent urinary diversion by stent placement today. Exam Initial Vital Signs Temp Pulse Resp BP Pulse Ox 102.2 F H 110 21 118/75 96 04/02/19 03:38 04/02/19 03:38 04/02/19 03:38 04/02/19 03:38 04/02/19 03:38 Urology Results - Labs 04/06/19 06:00 04/06/19 06:00 Abnormal lab results WBC 12.3 K/mcL (4.3-11.1) H 04/05/19 03:06 Hgb 11.2 g/dL (11.5-15.4) L 04/06/19 06:00 Hct 33.8 % (35.3-44.9) L 04/04/19 06:43 MCH 26.9 pg (28.0-33.3) L 04/06/19 06:00 MCHC 30.9 g/dL (31.6-35.5) L 04/06/19 06:00 RDW 17.2 % (11.5-14.5) H 04/06/19 06:00 12.1 K/mcL (1.6-8.9) H 04/03/19 08:38 Nucleated RBCs/100 WBC 0.1 /100 WBC (0) H 04/02/19 04:35 PT 19.9 Seconds (9.4-12.1) H 04/06/19 06:00 Sodium 134 mEq/L (136-145) L 04/06/19 06:00 Chloride 95 mEq/L (98-107) L 04/06/19 06:00 Carbon Dioxide 30 mEq/L (23-29) H 04/06/19 06:00 BUN 26 mg/dL (8-23) H 04/06/19 06:00 1.28 mg/dL (0.60-1.20) H 04/06/19 06:00 Est GFR ( Amer) 50 (> 60) L 04/06/19 06:00 Est GFR (Non-Af Amer) 41 (> 60) L 04/06/19 06:00 Glucose 160 mg/dL (70-105) H 04/06/19 06:00 POC Glucose 145 mg/dL (70-99) H 04/05/19 20:26 Phosphorus 2.6 mg/dL (2.7-4.5) L 04/02/19 04:35 0.3 mg/dL (0.0-0.2) H 04/02/19 04:35 123 Units/L (34-104) H 04/02/19 04:35 0.13 ng/mL (< 0.04) H* 04/02/19 17:03 3.3 g/dL (3.5-5.7) L 04/02/19 04:35 4.3 g/dL (2.4-3.5) H 04/02/19 04:35 0.8 (1.1-2.2) L 04/02/19 04:35 Turbid (Clear) A 04/02/19 04:00 100 mg/dL (Neg-Trace) H 04/02/19 04:00 Moderate (Negative) H 04/02/19 04:00 Positive (Negative) A 04/02/19 04:00 Ur Leukocyte Esterase Large (Negative) H 04/02/19 04:00 15-30 per hpf (0-3) H 04/02/19 04:00 5-15 per hpf (0-3) H 04/02/19 04:00 Ur Squamous Epith Cells Many per lpf (None-Few) H 04/02/19 04:00 Many per hpf (None-Few) H 04/02/19 04:00 Ur Culture Indicated? YES (NO) A 04/02/19 04:00 Vancomycin Trough 17 mcg/mL (5-10) H 04/06/19 06:00 Diabetes panel 04/06/19 Range/Units 06:00 Sodium 134 L (136-145) mEq/L Potassium 3.7 (3.5-5.1) mEq/L Chloride 95 L (98-107) mEq/L Carbon Dioxide 30 H (23-29) mEq/L BUN 26 H (8-23) mg/dL Creatinine 1.28 H (0.60-1.20) mg/dL Glucose 160 H (70-105) mg/dL Calcium 9.4 (8.6-10.3) mg/dL Calcium panel 04/06/19 Range/Units 06:00 Calcium 9.4 (8.6-10.3) mg/dL Pituitary panel 04/06/19 Range/Units 06:00 Sodium 134 L (136-145) mEq/L Potassium 3.7 (3.5-5.1) mEq/L Chloride 95 L (98-107) mEq/L Carbon Dioxide 30 H (23-29) mEq/L BUN 26 H (8-23) mg/dL Creatinine 1.28 H (0.60-1.20) mg/dL Glucose 160 H (70-105) mg/dL Calcium 9.4 (8.6-10.3) mg/dL Adrenal panel 04/06/19 Range/Units 06:00 Sodium 134 L (136-145) mEq/L Potassium 3.7 (3.5-5.1) mEq/L Chloride 95 L (98-107) mEq/L Carbon Dioxide 30 H (23-29) mEq/L BUN 26 H (8-23) mg/dL Creatinine 1.28 H (0.60-1.20) mg/dL Glucose 160 H (70-105) mg/dL Calcium 9.4 (8.6-10.3) mg/dL All other labs normal.
[2019-04-06] MEDS ORDERED: Isovue-300 50 ML VIAL ONE (15:46)
[2019-04-06] MEDS ORDERED: *HR* Propofol 200 MG/20 ML VIAL IVP ONE (15:57)
[2019-04-06] MEDS ORDERED: Ondansetron 4 MG/2 ML VIAL ONE (15:57)
[2019-04-06] MEDS ORDERED: *HR* Succinylcholine 200 MG/10 ML VIAL IVP ONE (15:57)
[2019-04-06] MEDS ORDERED: *HR* FentaNYL (PF) 100 MCG/2 ML VIAL ONE (15:57)
[2019-04-06] MEDS ORDERED: Lidocaine -MPF 2% 2 ML VIAL ONE (15:57)
[2019-04-06] MEDS ORDERED: *HR* Rocuronium Bromide 50 MG/5 ML VIAL ONE (15:57)
[2019-04-06] MEDS ORDERED: Dexamethasone 4 MG/ML VIAL ONE (15:57)
[2019-04-06] MEDS ORDERED: Lidocaine -MPF 4% 5 ML AMPUL ONE (15:57)
--- NOTE | 2019-04-06 16:02 | Anesthesia Evaluation PreOp ---
Date of Encounter: 04/06/19 Time of Encounter: 16:00 - Past History Planned Operation: Cysto, Right retrograde pyelogram, R stent Cardiac History: [place] (2006), HTN, Hyperlipidemia, Arrhythmia (afib on xarelto), Cardiac Stent (x3 2006) Pulmonary History: Former smoker, Pack/yr (41), Smoking Cessation (), COPD, [facility] Dx RELIEF DRILLER History: Denies Any Significant HX Other Medical History: Renal (CKD stage III, kidney stones), Diabetes Type II, Thyroid (hypo), Other (super morbid obesity BMI 66) Anesthesia History: No Prior Anesthetic Complications, Past Anesthesia (R ureteroscopic stone extraction) Alcohol Use: none Drug use: none Medications and Allergies Acetaminophen [Extra Strength Non-Aspirin] 1,000 mg PO Q6H PRN 04/02/19 [History] Allopurinol [Zyloprim 100 MG] 200 mg PO DAILY 04/02/19 [History] Ascorbic Acid [Vitamin C] 500 mg PO DAILY 04/02/19 [History] Aspirin [Adult Aspirin] 81 mg PO DAILY 04/02/19 [History] Citalopram [CeleXA] 20 mg PO DAILY 04/02/19 [History] Cyanocobalamin (Vitamin B-12) [Vitamin B-12] 1,000 mcg PO MOFR 04/02/19 [History] Fish Oil/Dha/Epa [Fish Oil 1,200 mg Fish Oil] 2,400 mg PO BID 04/02/19 [History] Furosemide [Lasix] 40 mg PO DAILY 04/02/19 [History] Glimepiride [Amaryl] 2.5 mg PO QAM 04/02/19 [History] Levothyroxine [Synthroid] 25 mcg PO QAM 04/02/19 [History] Magnesium Oxide [Mag-Oxide Magnesium] 400 mg PO DAILY 04/02/19 [History] Metoprolol [Lopressor] 12.5 mg PO BID 04/02/19 [History] Oxybutynin [Ditropan] 2.5 mg PO BID 04/02/19 [History] Potassium 99 mg PO DAILY 04/02/19 [History] Warfarin [Coumadin] 5 mg PO 1800 04/02/19 [History] Atorvastatin Calcium [Lipitor] 20 mg PO HS 04/03/19 [History] Cholecalciferol (Vitamin D3) [Vitamin D3] 2,000 units PO BID 04/03/19 [History] DiphenhydraMINE [Benadryl] 25 mg PO HS PRN 04/03/19 [History] Ferrous Sulfate 650 mg PO DAILY 04/03/19 [History] Glimepiride [Amaryl] 1 mg PO QPM 04/03/19 [History] Levothyroxine Sodium [Synthroid] 200 mcg PO QAM 04/03/19 [History] Lisinopril [Zestril] 5 mg PO DAILY 04/03/19 [History] Allergy/AdvReac Type Severity Reaction Status Date / Time piperacillin [From Zosyn] Allergy See Verified 04/02/19 03:37 Comments tazobactam [From Zosyn] Allergy See Verified 04/02/19 03:37 Comments - Meds/Allergy Pre-op Review Medications Reviewed: Yes Allergies Reviewed: Yes Beta Blockers on Current Med List: Yes If Beta Blockers taken, Date/Time (Last Dose taken): 815am today Anesthesia Results - Labs 04/06/19 06:00 04/06/19 06:00 - Imaging EKG: report reviewed (Interpretive Statements Atrial fibrillation Low voltage, precordial leads Electronically Signed On 04-02-2019 16:30:00 EDT by Osmany anne) Additional studies: Left Ventricular Wall Motion: Rest Echo Findings The apex, apical inferior, mid inferior, basal inferior, apical anterior, mid anterior, basal anterior, apical septal, mid inferior septal, basal inferior septal, apical lateral, mid anterior lateral, basal anterior lateral, mid anterior septal, mid inferior lateral, basal anterior septal and basal inferior lateral roger were hypokinetic. Findings: Study Quality * Technically sub-optimal due to poor echocardiographic windows. ECG Findings * Atrial fibrillation. Left Atrium * Moderately dilated left atrium. Left Ventricle * LVEF 40-45%. * Indeterminate diastolic function. Right Ventricle * Normal right ventricular structure and function. Right Atrium * Normal right atrial size. Aortic Valve * Trileaflet aortic valve. * Normal aortic valve structure. * No aortic regurgitation. * No aortic stenosis. Mitral Valve * Normal mitral valve structure. * No mitral stenosis. * Trace mitral regurgitation. Tricuspid Valve * Normal tricuspid valve structure. * No tricuspid regurgitation. * Unable to estimate RVSP due to lack of TR jet. * No tricuspid stenosis. Pulmonic Valve * Pulmonic valve is not well visualized. Aorta * Normally sized aortic root. Pericardium * The pericardium appears normal. IVC * The IVC is dilated. * > 50% respiratory change Pulmonary Artery * Normal visualized portions of the main pulmonary artery. Impression: Pharmacologic stress ECG is non-diagnostic for ischemia due to baseline non-specific ST and T changes. Gated EF = 54%. Medium-sized, moderate intensity, fixed inferior perfusion defect possibly due to a prior infarct. Perfusion imaging was negative for ischemia. Anesthesia Exam Vital Signs/O2 Sat, Most Current Temp Pulse Resp BP Pulse Ox 98.5 F 100 19 133/87 92 04/06/19 11:47 04/06/19 11:47 04/06/19 11:47 04/06/19 11:47 04/06/19 11:47 Weight: 170kg NPO (# of Hours): >8 - HEENT Pupil (Motor): Pupils equal, EOMI Mallampati: II Teeth: Edentulous Oral Opening: Greater than 3 - RELIEF DRILLER LOC: Oriented RELIEF DRILLER Motor: Normal RUE, Normal LUE, Normal RLE, Normal LLE, Normal Face RELIEF DRILLER Sensory: Normal: RUE, LUE, RLE, LLE, Face - Cardiac Rhythm: Irregular - Pulmonary Breath Sounds: bilateral Clear Anesthesia Assess/Plan ASA Score: 4 Level of consciousness: Cooperative, Oriented Anesthetic Plan: General (easy airway/intubation per 10/2018 [facility] record) Monitoring Plan: Standard Monitors Recovery Plan: PACU
[2019-04-06] MEDS ORDERED: Acetaminophen IV 1,000 MG/100 ML INFUS..BTL ONE (16:14)
[2019-04-06] MEDS ORDERED: Ondansetron 4 MG/2 ML VIAL IVP ONE ×2 (16:19→17:45)
[2019-04-06] MEDS ORDERED: *HR* FentaNYL (PF) 100 MCG/2 ML VIAL IVP PRN ×2 (16:19→17:45)
[2019-04-06] MEDS ORDERED: *HR* OxyCODONE Immed Rel 5 MG TABLET PO PRN ×3 (16:19→17:45)
[2019-04-06] MEDS ORDERED: Naloxone 0.4 MG/ML INJ IVP PRN ×3 (16:19→17:45)
[2019-04-06] MEDS ORDERED: Ringers Solution, Lactated 1,000 ML IVC SCH ×2 (16:30→17:45)
--- NOTE | 2019-04-06 17:12 | Operative Note ---
Date of procedure: 04/06/19 Pre-op diagnosis: Right ureteral calculus Post-op diagnosis: same Procedure: Cystoscopy, right retrograde ureteral pyelography, right double-J stent placement Implants: 6 x 26 right double-J stent Complications: None Anesthesia: ANA Surgeon: Mart Khalil Was there an hotel assistant general manager present: No Estimated blood loss (cc): 0 Specimen: none Condition: stable Disposition: PACU Procedure in Detail: The patient brought to the operating theater placed on the table supine position. Is identified by name and history general anesthetic. The patient placed in dorsal lithotomy then prepped and draped in normal sterile fashion. A cystoscope was inserted into the urethral meatus and advanced with the bladder under direct visualization. There were no mucosal abnormalities appreciated. An open-ended catheter was placed the tip the right ureteral orifice gentle injection of contrast a right retrograde Polygram was performed. Fluoroscopy showed significant hydronephrosis on the right. A Glidewire was advanced to the right renal pelvis area over the Glidewire a 6 x 26 double-J stent was advanced. Was sent was felt to be in good position the Glidewire was removed. Both proximal distal and sent were confirmed in good position fluoroscopically. This ended the operative procedure.
[2019-04-06] MEDS ORDERED: Warfarin perPT PO PRN (17:45)
[2019-04-06] MEDS ORDERED: traMADol 50 MG TABLET PO PRN (17:45)
[2019-04-06] MEDS ORDERED: D5% in Water 1,000 ML IVC PRN (17:45)
[2019-04-06] MEDS ORDERED: *HR* Dextrose 50 % in Water (Syg) 50 ML SYRINGE IVP PRN (17:45)
[2019-04-06] MEDS ORDERED: *HR* Warfarin 5 MG TABLET PO ONE ×2 (17:45→19:55)
[2019-04-06] MEDS ORDERED: Acetaminophen 325 MG TABLET PO PRN (17:45)
[2019-04-06] MEDS ORDERED: Dextrose Gel 15 GM/37.5 ML TUBE PO PRN ×2 (17:45)
[2019-04-06] MEDS ORDERED: Insulin LISPRO 300 UNITS/3 ML VIAL SQ SCH (21:00)
[2019-04-07] MEDS ORDERED: Levothyroxine 25 MCG TABLET PO SCH (06:30)
[2019-04-07 07:52] LABS: Hematocrit 36.9 % (35.3-44.9); Hemoglobin 11.2 g/dL (11.5-15.4); Mean Corpuscular HGB Conc 30.4 g/dL (31.6-35.5); Mean Corpuscular Hemoglobin 26.3 pg (28.0-33.3); Mean Corpuscular Volume 86.6 fL (83.0-100.0); Mean Platelet Volume 9.8 fL (9.4-12.4); Platelet Count 270 K/mcL (140-400); Red Blood Count 4.26 M/mcL (3.82-4.97); White Blood Count 13.5 K/mcL (4.3-11.1)
[2019-04-07 08:05] LABS: Prothrombin Time 22.5 Seconds (9.4-12.1)
[2019-04-07 08:11] LABS: Calcium 9.3 mg/dL (8.6-10.3)
[2019-04-07] MEDS: Cholecalciferol (D-3) 1,000 UNIT TABLET PO SCH (08:31)
[2019-04-07] MEDS: Insulin LISPRO 300 UNITS/3 ML VIAL SQ SCH ×2 (08:31→12:29)
[2019-04-07] MEDS ORDERED: Aspirin Enteric Coated 81 MG Tablet PO SCH (09:00)
[2019-04-07] MEDS ORDERED: Magnesium Oxide 400 MG TABLET PO SCH (09:00)
[2019-04-07] MEDS ORDERED: Sulfamethoxazole/Trimeth DS 1 EACH TABLET PO SCH ×3 (09:00→21:00)
[2019-04-07] MEDS ORDERED: Furosemide 40 MG TABLET PO SCH (09:00)
[2019-04-07] MEDS ORDERED: Cyanocobalamin (B-12) 1,000 MCG TABLET PO SCH (09:00)
--- NOTE | 2019-04-07 09:44 | Urology Progress Note ---
Date of Encounter: 04/07/19 Time of Encounter: 09:15 - Assessment and Plan (1) Ureteral stone with hydronephrosis Current Visit: Yes Status: Acute Assessment and plan: Patient is a 68-year-old female who presents one day status post cystoscopy, right retrograde ureteral pyelography, right double-J stent placement. Vital signs are currently stable and afebrile. White blood cell count is reassuring, and renal function is baseline. Patient is aware she will require staged stone extraction procedure, and she will follow up as an outpatient within 2 weeks. (2) UTI (urinary tract infection) Current Visit: Yes Status: Acute Assessment and plan: Patient is a 68-year-old female who presents with a Klebsiella Proteus urinary tract infection. Patient has received IV cefepime. Urology recommends an additional 14 days of oral culture sensitive antibiotics. We will plan a staged stone extraction procedure as an outpatient once infection is cleared. Qualifiers: Urinary tract infection type: acute cystitis Hematuria presence: with hematuria Qualified Code(s): N30.01 - Acute cystitis with hematuria (3) Nephrolithiasis Current Visit: Yes Status: Acute Progress Note Subjective: no new complaints, feels better Narrative: POD #1. Patient seen and examined sitting upright in bed in no apparent distress. Patient is tolerating normal diet without nausea or vomiting. Patient reports pain is well-controlled. Patient denies any fever, chills or flank pain. Objective Initial Vital Signs Temp Pulse Resp BP Pulse Ox 102.2 F H 110 21 118/75 96 04/02/19 03:38 04/02/19 03:38 04/02/19 03:38 04/02/19 03:38 04/02/19 03:38 - General physical appearance Present: well developed, no distress, no pain - Respiratory Present: normal expansion, normal respiratory effort - Abdomen Present: soft, non tender - Genitourinary Urine Appearance: Present: Clear - Integumentary Present: no rash, no abnormal pigmentation - Musculoskeletal Present: normal posture - Psychiatric Present: oriented to time, oriented to person, oriented to place, speech is normal, memory intact - Labs 04/07/19 07:18 04/07/19 07:18 Diabetes panel 04/07/19 Range/Units 07:18 Sodium 136 (136-145) mEq/L Potassium 4.0 (3.5-5.1) mEq/L Chloride 95 L (98-107) mEq/L Carbon Dioxide 32 H (23-29) mEq/L BUN 27 H (8-23) mg/dL Creatinine 1.16 (0.60-1.20) mg/dL Glucose 255 H (70-105) mg/dL Calcium 9.3 (8.6-10.3) mg/dL Calcium panel 04/07/19 Range/Units 07:18 Calcium 9.3 (8.6-10.3) mg/dL Pituitary panel 04/07/19 Range/Units 07:18 Sodium 136 (136-145) mEq/L Potassium 4.0 (3.5-5.1) mEq/L Chloride 95 L (98-107) mEq/L Carbon Dioxide 32 H (23-29) mEq/L BUN 27 H (8-23) mg/dL Creatinine 1.16 (0.60-1.20) mg/dL Glucose 255 H (70-105) mg/dL Calcium 9.3 (8.6-10.3) mg/dL Adrenal panel 04/07/19 Range/Units 07:18 Sodium 136 (136-145) mEq/L Potassium 4.0 (3.5-5.1) mEq/L Chloride 95 L (98-107) mEq/L Carbon Dioxide 32 H (23-29) mEq/L BUN 27 H (8-23) mg/dL Creatinine 1.16 (0.60-1.20) mg/dL Glucose 255 H (70-105) mg/dL Calcium 9.3 (8.6-10.3) mg/dL Consult Discharge Plan - Plan Referrals: Yoan Garcia DO [Primary Care Provider] - (ecf)
[2019-04-07 11:34] VITALS: BP 125/73
--- NOTE | 2019-04-07 12:37 | Discharge Summary ---
<Jake Patel I - Last Filed: 04/07/19 17:49> - NOTES TO OUTPATIENT PROVIDER Notes to Outpatient Provider: patient was admitted because of UTI and kidney stone and was discharged on bactrim for 14 days with urology followup for stent removal and staged stone extraction . , SNF recommended for rehab , she was d ischarged there Date of Encounter: 04/07/19 - Discharge Diagnosis (1) Sepsis Priority: Secondary Status: Resolved Qualifiers: Sepsis type: sepsis due to unspecified organism Qualified Code(s): A41.9 - Sepsis, unspecified organism (2) UTI (urinary tract infection) Priority: Primary Status: Acute Qualifiers: Urinary tract infection type: acute cystitis Hematuria presence: with hematuria Qualified Code(s): N30.01 - Acute cystitis with hematuria (3) Acute kidney injury Priority: Secondary Status: Acute (4) Cellulitis Priority: Secondary Status: Acute (5) Atrial fibrillation Status: Chronic Qualifiers: Atrial fibrillation type: chronic Qualified Code(s): I48.2 - Chronic atrial fibrillation (6) CAD (coronary artery disease) Status: Chronic Qualifiers: Coronary Disease-Associated Artery/Lesion type: [place] artery [place] vs. transplanted heart: [place] heart Associated angina: without angina Qualified Code(s): I25.10 - Atherosclerotic heart disease of [place] coronary artery without angina pectoris (7) Morbid obesity Priority: Secondary Status: Chronic (8) Ureteral stone with hydronephrosis Status: Acute (9) CHF (congestive heart failure) Priority: Secondary Status: Chronic Qualifiers: Heart failure type: systolic Heart failure chronicity: chronic Qualified Code(s): I50.22 - Chronic systolic (congestive) heart failure (10) CKD (chronic kidney disease) stage 3, GFR 30-59 ml/min Priority: Secondary Status: Chronic (11) Diabetes Priority: Secondary Status: Chronic Qualifiers: Diabetes mellitus type: type 2 Diabetes mellitus senior living insulin use: without senior living use Diabetes mellitus complication status: with kidney complications Diabetes mellitus complication detail: with chronic kidney disease Chronic kidney disease stage: stage 3 (moderate) Qualified Code(s): E11.22 - Type 2 diabetes mellitus with diabetic chronic kidney disease; N18.3 - Chronic kidney disease, stage 3 (moderate) (12) Gout Status: Chronic Qualifiers: Gout site: unspecified site Gout etiology: unspecified cause Chronicity: chronic Presence of tophus: without tophus Qualified Code(s): M1A.9XX0 - Chronic gout, unspecified, without tophus (tophi) (13) Hypothyroidism Status: Chronic Qualifiers: Hypothyroidism type: acquired Qualified Code(s): E03.9 - Hypothyroidism, unspecified Hospital course: Ms. Betancourt is a 68 year old female ,morbidly obese with a PMH of DM , necrotizing fascitis , Afib , CKD , kidney stones , she arrived to ER complaing of weakness, lethargy and high tempreture , decraese appetite and cloudy urine , a diagnosis of UTI and cellulitis of abdominal wall was made . Placed on broad spectrum abx due to hx of necrotizing faciitis. She was improving but noted some abdominal pain. Repeat CT showed hydronephrosis of R kidney with stones. She had stent placement. She will complete 2 more weeks PO abx per urology and follow up for stone extraction. GOMEZ inhibitor stopped due to renal function. She is now afebrile and ready for discharge to SNF. Exam Alert. Comfortable. Mucus membranes dry +S1,S2, no tachycardia . No wheeze Abd soft. Rash much improved. Less edema, she feels much better overall , with instruction to followup with her primary care provider , and she was asked to come back when she feel bad Discharge discussed with: patient, nurse - Time Spent with Patient Total time spent providing and/or coordinating discharge services: Time spent: Greater than 30 minutes - Discharge Medications Prescriptions: New Sulfamethoxazole/Trimeth DS [Bactrim Ds] 1 each PO BID tablet Tamsulosin [Flomax] 0.4 mg PO BID capsule Oxybutynin [Ditropan] 5 mg PO BID tablet Continued Cyanocobalamin (Vitamin B-12) [Vitamin B-12] 1,000 mcg PO MOFR Magnesium Oxide [Mag-Oxide Magnesium] 400 mg PO DAILY Potassium 99 mg PO DAILY Aspirin [Adult Aspirin] 81 mg PO DAILY Ascorbic Acid [Vitamin C] 500 mg PO DAILY Fish Oil/Dha/Epa [Fish Oil 1,200 mg Fish Oil] 2,400 mg PO BID Citalopram [CeleXA] 20 mg PO DAILY Allopurinol [Zyloprim 100 MG] 200 mg PO DAILY Levothyroxine [Synthroid] 25 mcg PO QAM Glimepiride [Amaryl] 2.5 mg PO QAM Furosemide [Lasix] 40 mg PO DAILY Acetaminophen [Extra Strength Non-Aspirin] 1,000 mg PO Q6H PRN PRN Reason: Pain Warfarin [Coumadin] 5 mg PO 1800 Metoprolol [Lopressor] 12.5 mg PO BID Atorvastatin Calcium [Lipitor] 20 mg PO HS Cholecalciferol (Vitamin D3) [Vitamin D3] 2,000 units PO BID DiphenhydraMINE [Benadryl] 25 mg PO HS PRN PRN Reason: Sleep Ferrous Sulfate 650 mg PO DAILY Glimepiride [Amaryl] 1 mg PO QPM Levothyroxine Sodium [Synthroid] 200 mcg PO QAM Discontinued Oxybutynin [Ditropan] 2.5 mg PO BID Lisinopril [Zestril] 5 mg PO DAILY Home Medications: Acetaminophen [Extra Strength Non-Aspirin] 1,000 mg PO Q6H PRN 04/02/19 [History] Allopurinol [Zyloprim 100 MG] 200 mg PO DAILY 04/02/19 [History] Ascorbic Acid [Vitamin C] 500 mg PO DAILY 04/02/19 [History] Aspirin [Adult Aspirin] 81 mg PO DAILY 04/02/19 [History] Citalopram [CeleXA] 20 mg PO DAILY 04/02/19 [History] Cyanocobalamin (Vitamin B-12) [Vitamin B-12] 1,000 mcg PO MOFR 04/02/19 [History] Fish Oil/Dha/Epa [Fish Oil 1,200 mg Fish Oil] 2,400 mg PO BID 04/02/19 [History] Furosemide [Lasix] 40 mg PO DAILY 04/02/19 [History] Glimepiride [Amaryl] 2.5 mg PO QAM 04/02/19 [History] Levothyroxine [Synthroid] 25 mcg PO QAM 04/02/19 [History] Magnesium Oxide [Mag-Oxide Magnesium] 400 mg PO DAILY 04/02/19 [History] Metoprolol [Lopressor] 12.5 mg PO BID 04/02/19 [History] Potassium 99 mg PO DAILY 04/02/19 [History] Warfarin [Coumadin] 5 mg PO 1800 04/02/19 [History] Atorvastatin Calcium [Lipitor] 20 mg PO HS 04/03/19 [History] Cholecalciferol (Vitamin D3) [Vitamin D3] 2,000 units PO BID 04/03/19 [History] DiphenhydraMINE [Benadryl] 25 mg PO HS PRN 04/03/19 [History] Ferrous Sulfate 650 mg PO DAILY 04/03/19 [History] Glimepiride [Amaryl] 1 mg PO QPM 04/03/19 [History] Levothyroxine Sodium [Synthroid] 200 mcg PO QAM 04/03/19 [History] Oxybutynin [Ditropan] 5 mg PO BID tablet 04/07/19 [Rx] Sulfamethoxazole/Trimeth DS [Bactrim Ds] 1 each PO BID tablet 04/07/19 [Rx] Tamsulosin [Flomax] 0.4 mg PO BID capsule 04/07/19 [Rx] Allergies/Adverse Reactions: Allergy/AdvReac Type Severity Reaction Status Date / Time piperacillin [From Zosyn] Allergy See Verified 04/02/19 03:37 Comments tazobactam [From Zosyn] Allergy See Verified 04/02/19 03:37 Comments Date of admission: 04/03/19 15:21 Primary care physician: Yoan Garcia DO Consults: 04/02/19 11:55 Consult to Occupational Therapy [CONS] Routine Comment: Evaluate, develop and implement POC Reason for Consult: evaluate for fall risk, need for fdc placement Does patient have active BEDREST order?: No Is patient medically & hemodynamically stable?: Yes Patient assessed for mobility or mobilized this visit?: No Consult to Physical Therapy [CONS] Routine Comment: Evaluate, develop and implement POC Reason for Consult: evaluate for fall risk, need for fdc placement Does patient have active BEDREST order?: No Is patient medically & hemodynamically stable?: Yes Patient assessed for mobility or mobilized this visit?: No 04/02/19 16:59 Consult to Wound Care [CONS] Routine Reason for Consult: Patient follows with Dr. Schaefer for wound care and podiatry. Call Completed: No 04/06/19 08:46 Consult to Coal Grader [CONS] Routine Reason for SW Consult: needs ecf 04/06/19 11:58 Consult to Urology [CONS] Routine Consulting Provider: Urology Jerirca Reason for Consult: right ureteral stone obstruction with moderate to severe hydronephrosis. Dr. Khalil contacted Call Completed: Yes Discharging clinician: Yordan Hatfield Anticipated date of discharge: 04/07/19 - Constitutional Vitals: Temp Pulse Resp BP Pulse Ox 97.9 F 71 16 125/73 92 04/07/19 11:28 04/07/19 11:28 04/07/19 11:28 04/07/19 11:28 04/07/19 11:28 General appearance: Present: A&O X 3, pleasant, no acute distress, answers questions appropriately Exam: awake - Head Head exam: Present: normal inspection - Eye Eye exam: Present: normal appearance, sclera anicteric - Neck Neck exam general surgery: Present: full ROM, normal inspection - Cardiovascular Cardiovascular exam: Present: irregular rhythm, +S1, +S2 - Neurological Exam Neurological exam: Present: alert. Absent: facial droop - Skin Skin exam: Present: rash, warm - Patient Status Disposition: Transfer SNF Condition: Good - Discharge Instructions Follow Up With: Mart Khalil [Partnered Physician] - 04/14/19 2:45 pm (Please follow up as schedule...) Yoan Garcia, [Primary Care Provider] - (ecf) Forms: ED Satisfaction Letter <Yordan Hatfield - Last Filed: 04/09/19 13:15> Orders not resulted at time of discharge: Pending orders 04/08/19 04:00 PT/INR [Prothrombin Time INR] [COAG] AM 0400 04/09/19 04:00 PT/INR [Prothrombin Time INR] [COAG] AM 0400 04/10/19 04:00 PT/INR [Prothrombin Time INR] [COAG] AM 0400 04/11/19 04:00 PT/INR [Prothrombin Time INR] [COAG] AM 0400 Date of Encounter: 04/07/19 Time of Encounter: 09:30 - Discharge Diagnosis (1) Ureteral stone with hydronephrosis Priority: Secondary Status: Acute (2) UTI (urinary tract infection) Priority: Primary Status: Acute Qualifiers: Urinary tract infection type: acute cystitis Hematuria presence: with hematuria Qualified Code(s): N30.01 - Acute cystitis with hematuria (3) Diabetes Priority: Secondary Status: Chronic Qualifiers: Diabetes mellitus type: type 2 Diabetes mellitus senior living insulin use: without petroleum terminal plant operator use Diabetes mellitus complication status: with kidney complications Diabetes mellitus complication detail: with chronic kidney disease Chronic kidney disease stage: stage 3 (moderate) Qualified Code(s): E11.22 - Type 2 diabetes mellitus with diabetic chronic kidney disease; N18.3 - Chronic kidney disease, stage 3 (moderate) (4) Morbid obesity Priority: Secondary Status: Chronic (5) CAD (coronary artery disease) Priority: Secondary Status: Chronic Qualifiers: Coronary Disease-Associated Artery/Lesion type: [place] artery [place] vs. transplanted heart: [place] heart Associated angina: without angina Qualified Code(s): I25.10 - Atherosclerotic heart disease of [place] coronary artery without angina pectoris (6) Cellulitis Priority: Secondary Status: Acute Qualifiers: Site of cellulitis: trunk Site of cellulitis of trunk: abdominal wall Qualified Code(s): L03.311 - Cellulitis of abdominal wall (7) CHF (congestive heart failure) Priority: Secondary Status: Chronic Qualifiers: Heart failure type: systolic Heart failure chronicity: chronic Qualified Code(s): I50.22 - Chronic systolic (congestive) heart failure (8) CKD (chronic kidney disease) stage 3, GFR 30-59 ml/min Priority: Secondary Status: Chronic (9) Hypothyroidism Priority: Secondary Status: Chronic Qualifiers: Hypothyroidism type: acquired Qualified Code(s): E03.9 - Hypothyroidism, unspecified (10) Sepsis Priority: Secondary Status: Resolved Qualifiers: Sepsis type: sepsis due to unspecified organism Qualified Code(s): A41.9 - Sepsis, unspecified organism (11) Atrial fibrillation Priority: Secondary Status: Chronic Qualifiers: Atrial fibrillation type: chronic Qualified Code(s): I48.2 - Chronic atrial fibrillation Hospital course: Ms. Betancourt is a 68 year old female - Time Spent with Patient Total time spent providing and/or coordinating discharge services: Date of admission: 04/03/19 15:21 Primary care physician: Yoan Garcia DO Consults: 04/02/19 11:55 Consult to Occupational Therapy [CONS] Routine Comment: Evaluate, develop and implement POC Reason for Consult: evaluate for fall risk, need for fdc placement Does patient have active BEDREST order?: No Is patient medically & hemodynamically stable?: Yes Patient assessed for mobility or mobilized this visit?: No Consult to Physical Therapy [CONS] Routine Comment: Evaluate, develop and implement POC Reason for Consult: evaluate for fall risk, need for fdc placement Does patient have active BEDREST order?: No Is patient medically & hemodynamically stable?: Yes Patient assessed for mobility or mobilized this visit?: No 04/02/19 16:59 Consult to Wound Care [CONS] Routine Reason for Consult: Patient follows with Dr. Schaefer for wound care and podiatry. Call Completed: No 04/06/19 08:46 Consult to Coal Grader [CONS] Routine Reason for SW Consult: needs ecf 04/06/19 11:58 Consult to Urology [CONS] Routine Consulting Provider: Urology Jerrica Reason for Consult: right ureteral stone obstruction with moderate to severe hydronephrosis. Dr. Khalil contacted Call Completed: Yes - Constitutional Vitals: Temp Pulse Resp BP Pulse Ox 97.9 F 71 16 125/73 92 04/07/19 11:28 04/07/19 11:28 04/07/19 11:28 04/07/19 11:28 04/07/19 11:28 General appearance: Present: A&O X 3, pleasant, no acute distress, answers questions appropriately - Patient Status Functional capacity at discharge: uses cane/walker Overall status at discharge: patient is progressing back to baseline - Diet and Activity Activity: as per physical therapy, increase activity as tolerated Diet: diabetic diet, low salt diet - Attending Attestation I examined this patient and my medical decision-making was reviewed with the Resident Physician on 04/07/19. I agree with the documented findings, disposition and treatment plan as described except to the extent set forth below. Ms Betancourt has been admitted for UTI and cellulitis of abdominal wall. Placed on broad spectrum abx due to hx of necrotizing faciitis. She was improving but noted some abdominal pain. Repeat CT showed hydronephrosis of R kidney with stones. She had stent placement. She will complete 2 more weeks PO abx per urology and follow up for stone extraction. GOMEZ inhibitor stopped due to renal function. She is now afebrile and ready for discharge to SNF. Exam Alert. Comfortable. Mucus membranes dry Heart irreg. No wheeze. Abd soft. Edema improving. Rash improving. Heart not tachy. No wheeze Abd soft. Rash much improved. Less edema. D/C time 40min
--- NOTE | 2019-04-07 12:49 | Physician Discharge Referral ---
ExtendedCare Referral Info Provider in Charge after Transfer: PCP Institutional Level of Care: Skilled - Diagnosis (1) Ureteral stone with hydronephrosis Priority: Secondary Status: Acute (2) UTI (urinary tract infection) Priority: Primary Status: Acute (3) Diabetes Priority: Secondary Status: Chronic (4) Morbid obesity Priority: Secondary Status: Chronic (5) CAD (coronary artery disease) Priority: Secondary Status: Chronic (6) Cellulitis Priority: Secondary Status: Acute (7) CHF (congestive heart failure) Priority: Secondary Status: Chronic (8) CKD (chronic kidney disease) stage 3, GFR 30-59 ml/min Priority: Secondary Status: Chronic (9) Hypothyroidism Priority: Secondary Status: Chronic (10) Sepsis Priority: Secondary Status: Resolved (11) Atrial fibrillation Priority: Secondary Status: Chronic Expected Duration of Placement: Less than 30 days Prognosis: Fair Aware of Diagnosis: Patient, Family Aware of Prognosis: Patient, Family - Transfer Medications Home Medications: Acetaminophen [Extra Strength Non-Aspirin] 1,000 mg PO Q6H PRN 04/02/19 [History] Allopurinol [Zyloprim 100 MG] 200 mg PO DAILY 04/02/19 [History] Ascorbic Acid [Vitamin C] 500 mg PO DAILY 04/02/19 [History] Aspirin [Adult Aspirin] 81 mg PO DAILY 04/02/19 [History] Citalopram [CeleXA] 20 mg PO DAILY 04/02/19 [History] Cyanocobalamin (Vitamin B-12) [Vitamin B-12] 1,000 mcg PO MOFR 04/02/19 [History] Fish Oil/Dha/Epa [Fish Oil 1,200 mg Fish Oil] 2,400 mg PO BID 04/02/19 [History] Furosemide [Lasix] 40 mg PO DAILY 04/02/19 [History] Glimepiride [Amaryl] 2.5 mg PO QAM 04/02/19 [History] Levothyroxine [Synthroid] 25 mcg PO QAM 04/02/19 [History] Magnesium Oxide [Mag-Oxide Magnesium] 400 mg PO DAILY 04/02/19 [History] Metoprolol [Lopressor] 12.5 mg PO BID 04/02/19 [History] Potassium 99 mg PO DAILY 04/02/19 [History] Warfarin [Coumadin] 5 mg PO 1800 04/02/19 [History] Atorvastatin Calcium [Lipitor] 20 mg PO HS 04/03/19 [History] Cholecalciferol (Vitamin D3) [Vitamin D3] 2,000 units PO BID 04/03/19 [History] DiphenhydraMINE [Benadryl] 25 mg PO HS PRN 04/03/19 [History] Ferrous Sulfate 650 mg PO DAILY 04/03/19 [History] Glimepiride [Amaryl] 1 mg PO QPM 04/03/19 [History] Levothyroxine Sodium [Synthroid] 200 mcg PO QAM 04/03/19 [History] Oxybutynin [Ditropan] 5 mg PO BID tablet 04/07/19 [Rx] Sulfamethoxazole/Trimeth DS [Bactrim Ds] 1 each PO BID tablet 04/07/19 [Rx] Tamsulosin [Flomax] 0.4 mg PO BID capsule 04/07/19 [Rx] Allergies/Adverse Reactions: Allergy/AdvReac Type Severity Reaction Status Date / Time piperacillin [From Zosyn] Allergy See Verified 04/02/19 03:37 Comments tazobactam [From Zosyn] Allergy See Verified 04/02/19 03:37 Comments - Respiratory Orders None Smoking Cessation: Smoking cessation has been advised. For more information, call the [employer] Tobacco Quit Line at 3-621-MHRONOW. - Ancillary Orders May use pressure relief devices daily prn, May go on TREV w/family/respon green party w/meds at nurse discretion PRN, May consult with Dentist, Home Help Aide, Jukebox Coin Collector PRN - Advance Directives Code Status: DNR-Arrest/Don't Intubate - Mobility Orders Chair, Ambulate - Rehabiliation Orders Rehab Potential: Fair Rehab Orders: Evaluation for Physical Therapy, Evaluation for Occupational Therapy - Treatments Skin tear care topically daily PRN per policy, May check for fecal impaction re ctally daily PRN, Fleet enema rectally every other day PRN cleansing purposes - Diet Orders No Added Salt (LAURE), No Concentrated Sweets CERTIFICATION: I certify that the transfer of the above named patient to an Extended Care Facility is necessary for the continuing treatment of the diagnosis listed. The above information is true and accurate reflection of patient's current condition. Confidential - Redisclosure prohibited without a patient's written consent.
[2019-04-07] MEDS ORDERED: *HR* Warfarin 1 MG TABLET PO ONE (18:00)
== END 2019-04-07 14:56 | DRG 854 ==
LOC: 2ANU 03:28 → EMEROOARM 03:28 → SUATTDRO 05:32 → 2ANU 06:16 → SUATTDRO 04-03 15:21
PROVIDERS: ADMIT Pediatrics; ATTEND Internal Medicine